=== PATIENT | female | born 1945 | race Caucasian/White ===

== ENCOUNTER → 2019-10-02 12:46 | Outpatient (CLI) | payer MEDICARE, OTHER, SELFPAY ==
--- NOTE | 2019-10-02 | DI.US.S_ITS ---
PROCEDURE: US THYROID INDICATIONS: F/U MULTINODULAR GOITER TECHNIQUE: Real-time scanning was performed of the thyroid gland, with image documentation. COMPARISON: [facility], [place], THYROID, 01/14/2018, 8:37. FINDINGS: Right: Thyroid lobe measures 5.9 x 2.9 x 2.6 cm, and is homogeneous in echotexture. Left: Thyroid lobe measures 6.4 x 3.1 x 2.8 cm, and is homogenous in echotexture. Isthmus: 9 mm thick. Nodule number: #1 Location: Medial aspect of lower pole right thyroid lobe Size: 1.2 x 1 x 1.3 cm. previously measures 1.2 x 1 x 1.4 cm in size Composition: spongiform Echogenicity: Hypoechoic Shape: Wider than tall Margins: Smooth Echogenic foci: None Total points: 2 ACR TI-RADS category: Not suspicious Nodule number: #2 Location: Lower pole of right thyroid lobe Size: 1.4 x 0.9 x 1 cm compared to 1.2 x 0.8 x 1 cm on previous study. Composition: Predominantly cystic Echogenicity: Hypoechoic Shape: Wider than tall Margins: Smooth Echogenic foci: None Total points: 2 ACR TI-RADS category: Not suspicious Nodule number: #3 Location: Upper pole of left thyroid lobe Size: 1.5 x 1.1 x 1.6 cm. previously measures 1.3 x 1 x 1.4 cm in size Composition: Spongiform Echogenicity: Hypoechoic Shape: Wider than tall Margins: Smooth Echogenic foci: None Total points: 2 ACR TI-RADS category: Not suspicious Nodule number: #4 Location: Lower pole of left thyroid lobe Size: 1.8 x 1.2 x 1.6 cm. previously measures 1.5 x 1.1 x 1.4 cm in size Composition: Solid Echogenicity: Hypoechoic Shape: Wider than tall Margins: Smooth Echogenic foci: Punctate Total points: 7 ACR TI-RADS category: Highly suspicious IMPRESSION: Interval increase in size of patient's highly suspicious lower pole left thyroid lobe nodule, consider FNA of this nodule for further evaluation. ACR TI-RADS definitions and recommendations: TI-RADS 1 (benign): 0 points. FNA not needed. TI-RADS 2 (not suspicious): 2 points. FNA not needed. TI-RADS 3 (mildly suspicious): 3 points. * FNA if 2.5 cm or larger, follow up if 1.5 cm or larger (at 1, 3, and 5 years). TI-RADS 4 (moderately suspicious): 4-6 points. * FNA if 1.5 cm or larger, follow up if 1 cm or larger (at 1, 2, 3, and 5 years). TI-RADS 5 (highly suspicious): 7 points or more. * FNA if 1 cm or larger, follow up if 0.5 cm or larger (every year for 5 years). Dictated by: Gee Ochoa M.D. on 10/02/2019 at 15:26 Approved by: Gee Ochoa M.D. on 10/02/2019 at 15:31
== END ==
PROVIDERS: Family Provider Physician Assistant; PCP Physician Assistant; Visit Provider Internal Medicine Endocrinology, Diabetes & Metabolism
DX: E04.2 Nontoxic multinodular goiter (principal)
CPT/HCPCS: 76536

== ENCOUNTER → 2020-03-28 13:12 | Outpatient (CLI) | payer MEDICARE, OTHER, SELFPAY ==
--- NOTE | 2020-03-28 | DI.MRI.S_ITS ---
PROCEDURE: MR LUMBAR SPINE WO CON INDICATIONS: Low back pain TECHNIQUE: Noncontrast sagittal T1 spin echo and T2 fast echo, sagittal STIR, axial T1 and T2 fast spin echo through the lumbar spine. In cases with scoliosis, additional coronal T2 fast spin echo may be performed. COMPARISON: [facility], CR, XR LUMBAR SPINE WITH OLBIQUES PLUS FLEXION EXTENSION, 03/21/2020, 13:54. FINDINGS: Image quality: Excellent. Alignment and Curvature: There are 5 lumbar-type vertebral bodies by plain film. There is mild grade 1 anterolisthesis of L1 on L2. Mild grade 1 retrolisthesis of L2 on L3, L3 on L4, and L4 on L5. Bone Marrow: Marrow is of normal overall signal. No acute vertebral body compression fractures. There is mild reactive signal within the endplates adjacent to the T10-T11, T11-T12, T12-L1, L1-L2, L3-L4, and L4-L5 intervertebral discs. Spinal Cord: Conus medullaris terminates at the upper L2 level. Visualized cord demonstrates normal signal and size. Paraspinous Soft Tissues: No paravertebral masses. L1-L2: Moderate disc height loss and desiccation. Mild diffuse disc bulge. Mild facet and ligamentum flavum hypertrophy. Mild canal stenosis. Mild bilateral foraminal stenosis. L2-L3: Mild disc height loss and desiccation. Mild diffuse disc bulge. Mild facet and ligamentum flavum hypertrophy. Mild epidural lipomatosis. Mild canal stenosis. Mild bilateral foraminal stenosis. L3-L4: Moderate disc desiccation. Moderate diffuse disc bulge with superimposed small right posterolateral broad based protrusion. Mild facet and ligament flavum hypertrophy. Mild epidural lipomatosis. Moderate canal stenosis. Moderate right and mild left foraminal stenosis. L4-L5: Mild disc height loss. Moderate disc desiccation. Moderate diffuse disc bulge. Moderate facet and ligamentum flavum hypertrophy. Mild epidural lipomatosis. Moderate canal stenosis. Mild right and moderate left subarticular foraminal stenosis. L5-S1: Mild disc height loss and desiccation. Mild diffuse disc bulge. Mild facet and ligamentum hypertrophy. Mild canal stenosis. Moderate subarticular foraminal stenosis bilaterally. IMPRESSION: 1. Multilevel degenerative disc and facet disease, as well as ligamentum flavum hypertrophy and epidural lipomatosis. 2. Multilevel canal stenoses, worst at L3-L4 and L4-L5, where there are moderate canal stenoses present. 3. Multilevel foraminal stenoses, worst at L3-L4, L4-L5, and L5-S1, where there are moderate foraminal stenoses as described above. Dictated by: Puneet Christy M.D. on 03/28/2020 at 13:48 Approved by: Puneet Christy M.D. on 03/28/2020 at 14:20
== END ==
PROVIDERS: Family Provider Physician Assistant; PCP Internal Medicine; Referring Provider Physical Medicine & Rehabilitation Pain Medicine; Visit Provider Physical Medicine & Rehabilitation Pain Medicine
DX: M54.5 Low back pain (principal); M48.061 Spinal stenosis, lumbar region without neurogenic claudication; M48.07 Spinal stenosis, lumbosacral region; M51.36 Other intervertebral disc degeneration, lumbar region; E88.2 Lipomatosis, not elsewhere classified
CPT/HCPCS: 72148

== ENCOUNTER → 2020-08-10 09:21 | Outpatient (CLI) | payer MEDICARE, OTHER, SELFPAY ==
[2020-08-10 09:51] LABS: Bacteria Urine None Seen; RBC Urine None Seen (0-5/HPF)
[2020-08-10 10:23] LABS: Add Manual Diff / Slide Review NO; Basophils Absolute Auto 0 /uL (0-100); Basophils Percent Auto 0.4 % (0-2); Eosinophils Absolute Auto 100 /uL (0-450); Eosinophils Percent Auto 1.8 % (2-4); Hematocrit 41.2 % (36-46); Hemoglobin 13.8 g/dL (12.0-16.0); Lymphocytes Absolute Auto 1300 /uL (1100-4500); Mean Corpuscular HGB Conc 33.6 % (30-36); Mean Corpuscular Hemoglobin 30.5 PG (26-34); Mean Corpuscular Volume 90.9 fL (80-100); Monocytes Absolute Auto 400 /uL (0-900); Monocytes Percent Auto 6.6 % (3-14); Neutrophils Absolute Auto 3700 /uL (1500-7000); Neutrophils Percent Auto 68.2 % (50-75); Platelet Count 190 X10^3/uL (150-400); Red Blood Cell Count 4.54 X10^6/uL (4.0-5.2); Red Cell Distribution Width 13.3 % (11.6-14.8); White Blood Cell Count 5.5 X10^3/uL (4.5-11.0)
[2020-08-10 10:43] LABS: Erythrocyte Sedimentation Rate 10 MM/HR (0-20)
[2020-08-10 10:51] LABS: Alanine Aminotransferase 20 IU/L (<35); Albumin 4.3 g/dL (3.5-5.0); Albumin Globulin Ratio 1.6 (1.0-2.8); Alkaline Phosphatase 91 U/L (38-126); Aspartate Aminotransferase 27 IU/L (14-36); Bilirubin Total 0.8 mg/dL (0.2-1.3); Blood Urea Nitrogen 15 mg/dL (7-17); Calcium 9.5 mg/dL (8.4-10.2); Carbon Dioxide 33 mmol/L (22-32); Chloride 102 mmol/L (98-107); Cholesterol 219 mg/dL (140-199); Estimated Glomerular Filt Rate > 60.0 mL/min (>60); Globulin 2.7 g/dL (1.7-4.1); Glucose 98 mg/dL (80-110); HDL Cholesterol 60 mg/dL (40-60); HEMOLYSIS < 15 (0-50); LDL Cholesterol Calculated 146 mg/dL (<100); Potassium 4.4 mmol/L (3.4-5.1); Sodium 137 mmol/L (137-145); Triglycerides 64 mg/dL (35-150)
[2020-08-10 10:54] LABS: C-Reactive Protein Quant < 0.5 mg/dL (<1.0); NT-proBNP (BNP-Adult 18+) 106 pg/mL (<125)
[2020-08-10 11:20] LABS: Ferritin 94 ng/mL (11-264)
[2020-08-10 11:31] LABS: HEMOLYSIS < 15 (0-50); Iron 133 ug/dL (37-170)
[2020-08-10 11:42] LABS: Percent Iron Saturation 41 % (15-50); Total Iron Binding Capacity 323 ug/dL (265-497); Transferrin 256 mg/dL (206-381)
[2020-08-10 11:48] LABS: Vitamin D 25 Hydroxy (D3) 52.8 ng/mL (30.0-100.0)
[2020-08-10 12:04] LABS: TSH w/ Reflex to FT4 1.25 uIU/mL (0.47-4.68)
[2020-08-10 12:29] LABS: Appearance Urine UA CLEAR; Bilirubin Urine UA NEGATIVE (NEGATIVE); Color Urine UA YELLOW; Glucose Urine UA NEGATIVE (Negative); Ketones Urine UA NEGATIVE (NEGATIVE); Leukocyte Esterase Urine UA 2+ (NEGATIVE); Nitrite Urine UA NEGATIVE (Negative); Occult Blood Urine UA NEGATIVE (Negative); Protein Urine UA NEGATIVE (Negative); Specific Gravity Urine UA 1.015 (1.000-1.035); Urobilinogen Urine UA 0.2 E.U./dL (0.2)
[2020-08-10 12:34] LABS: pH Urine UA 7.5 (4.5-8.0)
[2020-08-10 12:37] LABS: Culture Indicated Urine Specimen Cultured; Squamous Epithelial Cell Urine 0-1 /HPF (0-5/HPF); WBC Urine 1-5/HPF (0-5/HPF)
[2020-08-12 15:38] LABS: QuantiFERON Mitogen Value 6.24 IU/mL (.); QuantiFERON Nil Value 0.11 IU/mL (.); QuantiFERON TB Gold Plus Negative (Negative); QuantiFERON TB1 Ag Value 0.11 IU/mL (.)
== END ==
PROVIDERS: Family Provider Physician Assistant; PCP Internal Medicine; Referring Provider Internal Medicine; Visit Provider Internal Medicine
DX: R79.89 Other specified abnormal findings of blood chemistry (principal); R53.83 Other fatigue; R03.0 Elevated blood-pressure reading, without diagnosis of hypertension; E78.5 Hyperlipidemia, unspecified; E04.2 Nontoxic multinodular goiter; M54.42 Lumbago with sciatica, left side; I50.9 Heart failure, unspecified; D51.9 Vitamin B12 deficiency anemia, unspecified
CPT/HCPCS: 36415; 80053; 80061; 81001; 82306; 82728; 83540; 83550; 83880; 84443; 85025; 85651; 86140; 86480; 87086

== ENCOUNTER → 2020-08-25 09:28 | Outpatient (CLI) | payer MEDICARE, OTHER, SELFPAY | PROVIDERS: Family Provider Physician Assistant; PCP Internal Medicine; Referring Provider Internal Medicine; Visit Provider Internal Medicine | DX: Z13.820 Encounter for screening for osteoporosis (principal); M85.852 Other specified disorders of bone density and structure, left thigh; Z78.0 Asymptomatic menopausal state; E07.9 Disorder of thyroid, unspecified; Z82.62 Family history of osteoporosis | CPT/HCPCS: 77080 ==

== ENCOUNTER → 2020-10-21 07:41 | Outpatient (CLI) | payer MEDICARE, OTHER, SELFPAY ==
[2020-10-21] MEDS: COVID-19 VACC #1, MRNA(MOD) 100 MCG/0.5 ML VIAL IM (07:44)
== END ==
PROVIDERS: Family Provider Physician Assistant; PCP Internal Medicine; Visit Provider Internal Medicine
DX: Z23 Encounter for immunization (principal)
CPT/HCPCS: 0011A; 91301

== ENCOUNTER → 2020-11-07 11:40 | Outpatient (CLI) | payer MEDICARE, OTHER, SELFPAY ==
--- NOTE | 2020-11-07 11:41 | DI.RAD.S_ITS ---
PROCEDURE: XR RIBS BI MIN 4V W CXR1V INDICATIONS: Fall with chest/shoulder discomfort TECHNIQUE: For views of the bilateral ribs were acquired, along with a single view chest. COMPARISON: None. FINDINGS: Surgical changes and devices: None. Bones and chest wall: No fractures or dislocations. No suspicious bony lesions. Overlying soft tissues appear unremarkable. Lungs and pleura: No pleural effusions or pneumothorax. Lungs appear clear. Mediastinum: Mediastinal contours appear normal. Heart size is normal. IMPRESSION: No trauma found, no pneumothorax suspected. Dictated by: Caleb Naidu M.D. on 11/07/2020 at 12:52 Approved by: Caleb Naidu M.D. on 11/07/2020 at 12:53
--- NOTE | 2020-11-07 11:41 | DI.RAD.S_ITS ---
PROCEDURE: XR SHOULDER RT MIN 2V INDICATIONS: Fall with chest/shoulder discomfort TECHNIQUE: 3 views of the shoulder were acquired. COMPARISON: None. FINDINGS: Bones: No fractures or dislocations. No suspicious bony lesions. Visualized ribs appear intact. Soft tissues: No suspicious soft tissue calcifications. IMPRESSION: No acute trauma found. [id number] osteoarthritis at the AC joint. Dictated by: Caleb Naidu M.D. on 11/07/2020 at 12:53 Approved by: Caleb Naidu M.D. on 11/07/2020 at 12:54
== END ==
PROVIDERS: Family Provider Physician Assistant; PCP Family Medicine; Referring Provider Family Medicine; Visit Provider Family Medicine
DX: M25.511 Pain in right shoulder (principal); M19.011 Primary osteoarthritis, right shoulder; R07.81 Pleurodynia; M47.816 Spondylosis without myelopathy or radiculopathy, lumbar region; M51.26 Other intervertebral disc displacement, lumbar region
CPT/HCPCS: 71111; 73030

== ENCOUNTER → 2020-11-18 07:54 | Outpatient (CLI) | payer MEDICARE, OTHER, SELFPAY ==
[2020-11-18] MEDS: COVID-19 VACC #2, MRNA(MOD) 100 MCG/0.5 ML VIAL IM (08:01)
== END ==
PROVIDERS: PCP Family Medicine; Visit Provider Internal Medicine
DX: Z23 Encounter for immunization (principal)
CPT/HCPCS: 0012A; 91301

== ENCOUNTER → 2021-05-12 12:05 | Outpatient (CLI) | payer MEDICARE, OTHER, SELFPAY ==
--- NOTE | 2021-05-12 12:07 | DI.RAD.S_ITS ---
PROCEDURE: XR HIP W PEL IF DONE BLADIMIR MIN 4V INDICATIONS: Osteoarthritis of hip, unspecified TECHNIQUE: AP pelvis with lateral view(s) of both hip(s). COMPARISON: None. FINDINGS: Bones: No fractures or dislocations. Pelvic ring appears intact. No suspicious bony lesions. Moderate bilateral symmetric hip joint and sacroiliac joint osteoarthritis. Soft tissues: The visualized bowel gas pattern is normal. No suspicious soft tissue calcifications. IMPRESSION: Moderate osteoarthritis of the hips and sacroiliac joints bilaterally. Dictated by: Shaye Eugene M.D. on 05/12/2021 at 12:28 Approved by: Shaye Eugene M.D. on 05/12/2021 at 12:29
== END ==
PROVIDERS: PCP Family Medicine; Referring Provider Physical Medicine & Rehabilitation; Visit Provider Physical Medicine & Rehabilitation
DX: M16.0 Bilateral primary osteoarthritis of hip (principal); M46.1 Sacroiliitis, not elsewhere classified; M51.26 Other intervertebral disc displacement, lumbar region; M47.816 Spondylosis without myelopathy or radiculopathy, lumbar region; M19.011 Primary osteoarthritis, right shoulder
CPT/HCPCS: 73522; 99214

== ENCOUNTER → 2021-05-22 08:28 | Outpatient (CLI) | payer MEDICARE, OTHER, SELFPAY ==
[2021-05-22 13:01] LABS: COVID19 -Nasal RAPID Negative (Negative)
== END ==
PROVIDERS: PCP Family Medicine; Referring Provider Physical Medicine & Rehabilitation; Visit Provider Physical Medicine & Rehabilitation
DX: Z20.822 Contact with and (suspected) exposure to COVID-19 (principal)
CPT/HCPCS: 87635; C9803

== ENCOUNTER 2021-05-23 12:24 | Outpatient (CLI) | payer MEDICARE, OTHER, SELFPAY ==
[2021-05-23] VITALS (8 sets, daily range): BP systolic 166–193; BP diastolic 77–88; PULSE 59–75; RESP 17–21; TEMP 36.9; O2SAT 94–96
--- NOTE | 2021-05-23 12:26 | DI.RAD.S_ITS ---
PROCEDURE: PAIN L/S TRANSFORAMINAL INJECT INDICATIONS: SPONDYLOSIS [facility], , LUMBAR TRANSFORAMINAL JEROMY, 07/26/2020, 9:12. FINDINGS: Fluoroscopic spot filming was performed to verify placement of a spinal needle at the L3-L4 level, as labeled on the films. Appropriate location of the needle tip was confirmed by injection of iodinated contrast. IMPRESSION: Intraprocedural examination within normal limits. Dictated by: Shukri Moore M.D. on 05/23/2021 at 13:44 Approved by: Shukri Moore M.D. on 05/23/2021 at 13:45
[2021-05-23] MEDS: MIDAZOLAM 5 MG/5 ML VIAL IV (13:32)
[2021-05-23] MEDS: BETAMETHASONE 30 MG/5 ML MDV 6 MG INJ (13:34)
[2021-05-23] MEDS: IOPAMIDOL 15 ML VIAL 3 ML INJ (13:34)
[2021-05-23] MEDS: DEXAMETHASONE 10 MG/ML VIAL 20 MG INJ (13:35)
[2021-05-23] MEDS: BUPIVACAINE 0.25% (PF) VIAL 2 ML INJ (13:35)
--- NOTE | 2021-05-23 13:45 | PM.PROC.IR.1 ---
Date/Time/Diagnoses Date of procedure: 05/23/21 Time of procedure: 13:46 Pre-procedure diagnosis: 1. FORAMINAL STENOSIS WITH LE SYMPTOMS Post-procedure diagnosis: same Procedure Notes Procedure: 1. FLUOROSCOPICALLY GUIDED CONTRAST CONTROLLED TRANSFORAMINAL EPIDURAL STEROID INJECTION - LEFT L3/4 TFESI Indications: Maren is referred by Dr. Spears for treatment of Foraminal Stenosis with left LE Symptoms Physician: Conrado Allen Total Fluoroscopy time (seconds): 9 Total sedation minutes: 10 Complications: none Procedure in detail & Post-procedure care: FINDINGS Foraminal Nerve Root Compression secondary to disc disease and facet hypertrophy DESCRIPTION OF PROCEDURE Following review of allergy and review of potential side effects and complications, including, but not necessarily limited to, infection, allergic reaction, local tissue breakdown, stroke, temporary or permanent nerve injury, paralysis, and possible , the patient indicated that the patient understood and agreed to proceed. An informed consent document was signed by the patient, witnessed by a nurse, and placed in the patient's chart. Additionally, other treatment options including medications, modalities, and physical therapy were reviewed with the patient. After review of previous anaesthesic history and IV conscious sedation the patient was deemed safe to proceed with today?s procedure with IV conscious sedation as ASA class II designation. Safety time-out was performed to confirm patient ID, procedure to be performed and site of procedure. IV sedation was accomplished with a combination of 2mg of Versed was administered by the RN after DO order, titrated to patient comfort during the course of the procedure while the patient remained responsive to all verbal commands In the prone position following sterile prep and drape of the lumbar region, the left L3/4 posterior neuroforamen was identified fluoroscopically. The skin was anesthetized via a 25-gauge 1.5-inch needle with 1% lidocaine solution. At this point, a 25-gauge 3.5-inch spinal needle was atraumatically introduced and advanced under fluoroscopic guidance through the posterior left L3/4 neuroforamen to approximately the anterior aspect of the canal. Depth was confirmed on lateral view. Following negative aspiration, injection of approximately 1.5 cc of Isovue 200 under live fluoroscopy in the AP view confirmed excellent flow along the nerve root, into the epidural space without vascular or intrathecal uptake observed Radiological data, including multiple fluoroscopic views of the lumbosacral spine, reveal a spinal needle at the left L3/4 posterior neuroforamen. Subsequent views show flow of contrast material flowing superiorly and inferiorly along the nerve root confirming epidural flow. Subsequently, a test dose of 1.5cc of 1% lidocaine solution was administered and patient was observed for two minutes for signs or symptoms of complications, including abdominal pain, shortness of breath, bilateral upper or lower extremity weakness, nausea and vomiting, prior to steroid injection. At this point, a total of 3cc or 20mg of dexamethasone and 6mg betamethasone was injected without incident. The patient tolerated the procedure well without signs or symptoms of complications prior to transfer to the recovery area continued monitoring without incident. The patient was then transferred to the recovery area where they were observed for an appropriate time after the injection. The patient reported a VAS score of 7 prior to the procedure and a post-procedure VAS of 0. POST OP INSTRUCTIONS The patient was provided a Pain Log to continue to record their response to the target-specific procedure prior to follow-up visit with their referring physician. Additionally, specific post-injection care instructions and a contact number to our office were provided if concerns arise regarding possible complications associated with the procedure are suspected.
== END 2021-05-23 14:12 | disposition home or self-care (01) ==
LOC: RAD 12:25
PROVIDERS: PCP Family Medicine; Referring Provider Physical Medicine & Rehabilitation; Visit Provider Physical Medicine & Rehabilitation
DX: M48.061 Spinal stenosis, lumbar region without neurogenic claudication (principal); M51.16 Intervertebral disc disorders with radiculopathy, lumbar region
CPT/HCPCS: 64483; 99152; J0702; J1100; J2250; J3010

== ENCOUNTER → 2021-08-04 10:32 | Outpatient (CLI) | payer MEDICARE, OTHER, SELFPAY ==
[2021-08-04] MEDS: COVID-19 VACC #3, MRNA(MOD) 50 MCG/0.25 ML VIAL IM (10:37)
== END ==
PROVIDERS: PCP Family Medicine; Visit Provider Internal Medicine
DX: Z23 Encounter for immunization (principal)
CPT/HCPCS: 0013A; 91301

== ENCOUNTER 2021-09-14 18:19 | Emergency (ER) | payer MEDICARE, OTHER, SELFPAY ==
[2021-09-14 18:23] VITALS: BP 213/95; PULSE 77; RESP 14; TEMP 36.7; O2SAT 97; BMI 29.7
--- NOTE | 2021-09-14 18:49 | ED.HA ---
HPI - Headache General Chief Complaint: Headache Stated Complaint: had a few migraines, has an upcoming surgery Time Seen by Provider: 09/14/21 18:43 Source: patient Mode of arrival: Ambulatory History of Present Illness HPI Narrative: Patient is a 76-year-old female who is here for evaluation of a headache. She states that the headache started yesterday. Was a gradual onset. No fevers. No trauma. This morning she woke up and had no symptoms but a another headache very similar to the 1 yesterday developed again today. She does have a history of migraines. She is not currently on any medications. States she has not had a migraine in approximately 30 years. She has been on estrogen replacement for the past 7 weeks. She is scheduled to have a hysterectomy at the beginning and next month. Patient states that in character this feels like 1 of her many years ago. Describes it as the right side of her head. Related Data Home Medications Medication Instructions Recorded Confirmed acetaminophen 325 mg capsule 650 mg PO Q6H PRN 08/10/20 09/07/21 (Tylenol) codeine sulfate 15 mg tablet 15 mg PO Q4-6H PRN 08/10/20 09/07/21 diclofenac sodium 1 % topical gel 2 g TOPICAL ONCE g 08/10/20 09/07/21 losartan 25 mg tablet 25 mg PO DAILY 11/07/20 09/07/21 Previous Rx's Medication Instructions Recorded Penciclovir (DENAVIR) 1 % TOPICAL SEE INSTRUCTIONS #1.5 06/01/16 gm cyclobenzaprine 5 mg tablet 5 mg PO TID PRN #14 tab 11/07/20 tramadol 50 mg tablet 50 mg PO Q8H PRN #30 tab 05/18/21 estradiol (Estrace) 0.5 g VAGINAL DAILY #42.5 g 07/27/21 Allergies Allergy/AdvReac Type Severity Reaction Status Date / Time amoxicillin [AMOXICILLIN] Allergy Severe Ulcers in Verified 09/14/21 18:27 mouth - severe drug rash - skin peeled ampicillin [AMPICILLIN] Allergy Severe Severe Verified 09/14/21 18:27 drug rash, ulcers in mouth, peeling of skin Sulfa (Sulfonamide Allergy Mild HIVES Verified 09/14/21 18:27 Antibiotics) [SULFA (SULFONAMIDE ANTIBIOTICS)] metronidazole [METRONIDAZOLE] AdvReac Severe Herrera Verified 09/14/21 18:27 Wilder syndrome oxycodone [OXYCODONE] AdvReac Severe Orthopnea Verified 09/14/21 18:27 - woke up gasping for air ciprofloxacin [From CIPRO] AdvReac Intermediate Torn Verified 09/14/21 18:27 meniscus PENICILLIN Allergy Severe Urticaria Uncoded 09/07/21 14:46 swelling Review of Systems Constitutional Constitutional: Denies fever(s) and Reports headache(s) Eyes Eyes: Reports system reviewed and no additional complaints, except as documented and Denies change in vision ENT Ears, Nose, Mouth, and Throat: Reports system reviewed and no additional complaints, except as documented, Denies vertigo, Denies dizziness, Reports headache(s), Denies neck pain, Denies disequilibrium, Denies sinus pressure and Denies sore throat Cardiovascular Cardiovascular: Reports system reviewed and no additional complaints, except as documented, Denies chest pain and Denies dyspnea Respiratory Respiratory: Reports system reviewed and no additional complaints, except as documented and Denies dyspnea Gastrointestinal Gastrointestinal: Reports system reviewed and no additional complaints, except as documented Genitourinary Genitourinary: Reports system reviewed and no additional complaints, except as documented Musculoskeletal Musculoskeletal: Reports system reviewed and no additional complaints, except as documented, Denies back pain, Denies neck pain and Denies tingling Integumentary/Breasts Skin/Breast: Reports system reviewed and no additional complaints, except as documented Neurologic Neurologic: Denies abnormal movements, Denies confusion, Denies vertigo, Denies dizziness, Reports headache(s), Denies tingling, Denies tremor(s) and Denies disequilibrium Psychiatric Psychiatric: Denies confusion Hematologic/Lymphatic On Anticoagulants: No Patient History Medical History 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 Facet arthropathy, lumbar Hereditary hemochromatosis Herniated nucleus pulposus, L3-4 left History of Herrera-Wilder toxic epidermal necrolysis overlap syndrome Hyperlipidemia Hypertension Hypothyroidism Insomnia Osteopenia (06/14/14) Primary osteoarthritis, right shoulder Surgical History History of carpal tunnel repair Family History Sister Heart disease Thyroid disorder RA (rheumatoid arthritis) Social History Smoking Status: Never smoker second hand exposure: No alcohol intake: current substance use type: does not use Smoking Status: Never smoker alcohol intake frequency: holidays/special occasions only Substance Use Type: does not use Exam Initial Vital Signs Initial Vital Signs: Vital Signs Temperature 98.0 F 09/14/21 18:23 Pulse Rate 77 09/14/21 18:23 Respiratory Rate 14 09/14/21 18:23 Blood Pressure 213/95 H 09/14/21 18:23 Pulse Oximetry 97 09/14/21 18:23 Const General: cooperative, healthy appearing, comfortable, well developed and well groomed Limitations: mental status not altered HENMT Head: normal to inspection and normocephalic Ears: hearing grossly normal bilaterally Nose: external nose normal Face and sinus: normal facial exam Eyes General: appearance normal, both eyes and all related structures Pupils: PERRL Resp Effort & Inspection: normal respiratory effort Auscultation: clear to auscultation bilaterally Cardio Rate: regular rate Rhythm: regular rhythm GI Palpation: soft and No tender Skin General: no rashes or lesions noted Neuro General: patient alert, patient awake, patient oriented x3 and moves all extremities Cranial Nerves: CN's II-XI intact bilaterally Cognition: normal cognition Speech: speech normal Motor: muscle tone normal throughout Sensory Exam: no sensory deficits noted Extrem General: normal to inspection and capillary refill normal Psych Appearance: grossly normal and well kempt Scores GCS [place] coma scale eye opening: Spontaneous [place] coma scale verbal response: Orientated [place] coma scale motor response: Obey commands [place] coma scale total score: 15 Course Orders Ordered: ED Orders 09/14/21 18:50 Basic Metabolic Panel Stat C-Reactive Protein Quant Stat Complete Blood Count AUTO DIFF Stat Erythrocyte Sedimentation Rate Stat 09/14/21 18:51 CT head/brain wo con Stat Vital Signs Vital signs: Vital Signs - 8 hr 09/14/21 18:23 09/14/21 19:59 Temperature 98.0 F Pulse Rate 77 Respiratory Rate 14 Blood Pressure 213/95 H 189/87 H Pulse Oximetry 97 97 MDM - Headache Lab Data Attestation: I reviewed the patient's lab results. Result diagrams: 09/14/21 18:50 09/14/21 18:50 Labs: Lab Results 09/14/21 09/14/21 Range/Units 18:50 18:50 WBC 5.5 (4.5-11.0) X10^3/uL RBC 4.27 (4.0-5.2) X10^6/uL Hgb 13.0 (12.0-16.0) g/dL Hct 38.2 (36-46) % MCV 89.5 (80-100) fL MCH 30.6 (26-34) PG MCHC 34.2 (30-36) % RDW 12.9 (11.6-14.8) % Plt Count 196 (150-400) X10^3/uL Neut % (Auto) 57.7 (50-75) % Lymph % (Auto) 31.0 (25-40) % [place] % (Auto) 7.4 (3-14) % Eos % (Auto) 3.5 (2-4) % Baso % (Auto) 0.4 (0-2) % Neut # (Auto) 3200 (6655-5837) /uL Lymph # (Auto) 1700 (4946-8570) /uL [place] # (Auto) 400 (0-900) /uL Eos # (Auto) 200 (0-450) /uL Baso # (Auto) 0 (0-100) /uL ESR 10 (0-20) MM/HR Sodium 137 (137-145) mmol/L Potassium 3.9 (3.4-5.1) mmol/L Chloride 103 (98-107) mmol/L Carbon Dioxide 28 (22-32) mmol/L BUN 15 (7-17) mg/dL Creatinine 0.52 (0.52-1.04) mg/dL Estimated GFR > 60.0 (>60) mL/min BUN/Creatinine Ratio 28.8 H (6-22) Glucose 177 H (80-110) mg/dL Calcium 9.6 (8.4-10.2) mg/dL C-Reactive Protein 1.1 H (<1.0) mg/dL Imaging Data CT scan - head: Radiologist's Impression: Launch?[address] [address] [address] Scan Report Signed Patient: Maren Zimmer MR#: [id number] : 1945 Acct:[id number] Age/Sex: 76 / F Date of Service: 09/14/21 Loc: ED Accession Number: [id number] ?? Procedure: CT head/brain wo con Ordering Provider: Alvarez Benjamin D.O. PROCEDURE:? CT HEAD/BRAIN WO CON ? INDICATIONS:? HTN and headache ? TECHNIQUE:? Noncontrast 4.5 mm thick angled axial sections acquired from the foramen magnum to the vertex, with coronal and sagittal reformats.? For radiation dose reduction, the following was used:? automated exposure control, adjustment of mA and/or kV according to patient size.? ? COMPARISON:? None. ? FINDINGS:? Image quality:? Excellent.? ? CSF spaces:? Basal cisterns are patent.? No extra-axial fluid collections.? The ventricles are symmetric in size and shape.? ? Brain:? No intracranial bleeds or masses.? There is cerebral volume loss for age, with resultant ventricular and sulcal prominence.? There are periventricular and deep white matter chronic small vessel ischemic changes.? There is intracranial internal carotid artery atherosclerosis.? ? Skull and face:? Calvarium and visualized facial bones appear intact, without suspicious lesions.? ? Sinuses:? Bilateral frontal sinus and anterior ethmoid air cell mucosal thickening leading to varying degrees of near complete opacification and complete opacification.? Remaining paranasal sinuses are predominantly clear.? No mastoid air cell effusion. ? IMPRESSION:? No acute intracranial finding.? Frontal sinus and ethmoid air cell opacification which may represent acute sinusitis.? ? ? Dictated by: Oswaldo Giron M.D. on 09/14/2021 at 19:07 ? ? Approved by: Oswaldo Giron M.D. on 09/14/2021 at 19:09?? [facility] Narrative Medical decision making narrative: Patient has a unremarkable neurologic exam. She denied the need for any medication here in the emergency department. Her head CT is unremarkable. Informed her that we cannot specifically state that the headache has been cause because of her estrogen supplementation that she has been on this medication for the past 7 weeks and has only had a headache yesterday and today. 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 No fevers. We did discuss the possibility that she is again having migraines despite the fact that has been 30 years and she has had a previous 1. She expressed understanding of this. Will just take Tylenol and ibuprofen at home as needed. She was given strict return precautions. She expressed understanding and agreement. Discharge Plan Departure Patient Disposition: Home Clinical Impression: Headache, Hypertension Instructions: DI for Headache Activity Restrictions/Additional Instructions: I recommend that you take all of your medications as directed. Take your blood pressure at home like we discussed. Contact your primary doctor for a follow-up. Return to the emergency department for any new or worsening symptoms Prescriptions: No Action Penciclovir (DENAVIR) 1 % Topical SEE INSTRUCTIONS Qty: 1.5 0RF tramadol 50 mg tablet 50 mg PO Q8H PRN (Reason: pain) Qty: 30 0RF estradiol [Estrace] 0.01 % (0.1 mg/gram) cream 0.5 g vaginal DAILY Qty: 42.5 3RF Rx Instructions: 0.5gm in vagina and small amt to opening of vagina every day for 2 wks and then twice a week losartan 25 mg tablet 25 mg PO DAILY 0RF cyclobenzaprine 5 mg tablet 5 mg PO TID PRN (Reason: muscle spasm) Qty: 14 0RF acetaminophen [Tylenol] 325 mg capsule 650 mg PO Q6H PRN0RF codeine sulfate 15 mg tablet 15 mg PO Q4-6H PRN0RF diclofenac sodium 1 % gel 2 g topical ONCE 0RF Referrals: Kristopher Spears MD [Primary Care Provider] -
--- NOTE | 2021-09-14 18:51 | DI.CT.S_ITS ---
PROCEDURE: CT HEAD/BRAIN WO CON INDICATIONS: HTN and headache TECHNIQUE: Noncontrast 4.5 mm thick angled axial sections acquired from the foramen magnum to the vertex, with coronal and sagittal reformats. For radiation dose reduction, the following was used: automated exposure control, adjustment of mA and/or kV according to patient size. COMPARISON: None. FINDINGS: Image quality: Excellent. CSF spaces: Basal cisterns are patent. No extra-axial fluid collections. The ventricles are symmetric in size and shape. Brain: No intracranial bleeds or masses. There is cerebral volume loss for age, with resultant ventricular and sulcal prominence. There are periventricular and deep white matter chronic small vessel ischemic changes. There is intracranial internal carotid artery atherosclerosis. Skull and face: Calvarium and visualized facial bones appear intact, without suspicious lesions. Sinuses: Bilateral frontal sinus and anterior ethmoid air cell mucosal thickening leading to varying degrees of near complete opacification and complete opacification. Remaining paranasal sinuses are predominantly clear. No mastoid air cell effusion. IMPRESSION: No acute intracranial finding. Frontal sinus and ethmoid air cell opacification which may represent acute sinusitis. Dictated by: Oswaldo Giron M.D. on 09/14/2021 at 19:07 Approved by: Oswaldo Giron M.D. on 09/14/2021 at 19:09
[2021-09-14 19:06] LABS: Add Manual Diff / Slide Review NO; Basophils Absolute Auto 0 /uL (0-100); Basophils Percent Auto 0.4 % (0-2); Eosinophils Absolute Auto 200 /uL (0-450); Eosinophils Percent Auto 3.5 % (2-4); Hematocrit 38.2 % (36-46); Lymphocytes Absolute Auto 1700 /uL (1100-4500); Mean Corpuscular HGB Conc 34.2 % (30-36); Mean Corpuscular Hemoglobin 30.6 PG (26-34); Mean Corpuscular Volume 89.5 fL (80-100); Monocytes Absolute Auto 400 /uL (0-900); Monocytes Percent Auto 7.4 % (3-14); Neutrophils Absolute Auto 3200 /uL (1500-7000); Neutrophils Percent Auto 57.7 % (50-75); Platelet Count 196 X10^3/uL (150-400); Red Blood Cell Count 4.27 X10^6/uL (4.0-5.2); Red Cell Distribution Width 12.9 % (11.6-14.8); White Blood Cell Count 5.5 X10^3/uL (4.5-11.0)
[2021-09-14 19:29] LABS: BUN Creatinine Ratio 28.8 (6-22); Blood Urea Nitrogen 15 mg/dL (7-17); Calcium 9.6 mg/dL (8.4-10.2); Carbon Dioxide 28 mmol/L (22-32); Chloride 103 mmol/L (98-107); Estimated Glomerular Filt Rate > 60.0 mL/min (>60); Glucose 177 mg/dL (80-110); HEMOLYSIS < 15 (0-50); Potassium 3.9 mmol/L (3.4-5.1); Sodium 137 mmol/L (137-145)
[2021-09-14 19:34] LABS: Erythrocyte Sedimentation Rate 10 MM/HR (0-20)
[2021-09-14 19:52] LABS: C-Reactive Protein Quant 1.1 mg/dL (<1.0)
[2021-09-14 19:59] VITALS: BP 189/87; O2SAT 97
== END 2021-09-14 20:19 | disposition home or self-care (01) ==
PROVIDERS: Emergency Provider Emergency Medicine; PCP Family Medicine
DX: R51.9 Headache, unspecified (principal); I10 Essential (primary) hypertension
CPT/HCPCS: 36415; 70450; 80048; 85025; 85651; 86140; 99283; 99284

== ENCOUNTER → 2021-10-09 10:34 | Outpatient (CLI) | payer MEDICARE, OTHER, SELFPAY | PROVIDERS: PCP Family Medicine; Referring Provider Obstetrics & Gynecology; Visit Provider Obstetrics & Gynecology | DX: Z01.812 Encounter for preprocedural laboratory examination (principal); Z20.822 Contact with and (suspected) exposure to COVID-19 | CPT/HCPCS: 87635 ==

== ENCOUNTER → 2021-12-27 14:28 | Outpatient (CLI) | payer MEDICARE, OTHER, SELFPAY ==
[2021-12-27 15:24] LABS: COVID19 -Nasal RAPID Negative (Negative)
== END ==
PROVIDERS: PCP Family Medicine; Referring Provider Obstetrics & Gynecology; Visit Provider Obstetrics & Gynecology
DX: Z01.812 Encounter for preprocedural laboratory examination (principal); Z20.822 Contact with and (suspected) exposure to COVID-19
CPT/HCPCS: 87635

== ENCOUNTER 2021-12-28 08:16 | Day surgery (SDC) | payer MEDICARE, OTHER, SELFPAY ==
[2021-12-18 08:37] VITALS: BMI 29.9
[2021-12-28] VITALS (18 sets, daily range): BP systolic 88–147; BP diastolic 50–91; PULSE 56–80; RESP 12–17; TEMP 36.1–37; O2SAT 92–99; BMI 29.9
--- NOTE | 2021-12-28 | PATH_ITS ---
[facility] Accession Number: [id number] . 01 Material submitted: . uterus - UTERUS, CERVIX, BILATERAL FALLOPTIAN TUBES . 02 Diagnosis: Uterus, Cervix, Bilateral Fallopian Tubes, Hysterectomy, Bilateral Salpingectomy: 1. Negative for atypia, atypical hyperplasia and malignancy. 2. Leiomyomas. 3. Inactive endometrium. 4. Benign bilateral fallopian tubes. [facility] 01/03/2022 1157 Local . 02 Electronically signed: . Cristina Perez MD, Pathologist NPI- [id number] . 01 Gross description: . The specimen is received in formalin, designated as uterus, cervix, bilateral fallopian tubes, is a uterus (54 grams, 8.5 cm from fundus to cervix, 4.5 cm from cornu to cornu, 2.8 cm from anterior to posterior), right fimbriated fallopian tube (5.2 x 0.4 cm), and left fimbriated fallopian tube (5.0 x 0.5 cm). The apparent cervical margin is markedly ragged. The serosal surfaces of the uterus are grossly unremarkable. The endometrial cavity (2.5 cm in length x 0.9 cm in width) is lined by hemorrhagic endometrium. Sectioning the uterus corpus reveals unremarkable endometrium (0.1 cm average thickness) and multiple white-martinez leiomyomata (0.4 - 0.5 cm in greatest dimension) involving the otherwise grossly unremarkable myometrium (1.5 cm average thickness). . The ectocervical mucosa is pale martinez and smooth with no obvious lesions. The external os is 0.5 cm in diameter, slit-like and patent. The fallopian tubes are bilaterally grossly unremarkable. Shot Polisher And Inspector sections are submitted as follows: . A1: Anterior cervix, 12 o'clock. A2: Anterior endomyometrium, to include rep of largest leiomyoma. A3: Posterior cervix, 6 o'clock. A4: Posterior endomyometrium. A5: Reps of right fallopian tube. A6: Reps of left fallopian tube. ([id number]) /[facility] 01/02/2022 1720 Local . 02 Pathologist provided ICD-10: N85.4 . 02 CPT . 910444 Specimen Comment: A courtesy copy of this report has been sent to [phone], [phone] Specimen Comment: [id number] Performed at: 01 [facility] [address] [facility], [place], [place] [id number] MD Shahriar Birmingham MD Phone: [phone] Performed at: 02 [facility] [address] [place] [id number] MD Cristina Perez MD Phone: [phone]
[2021-12-28] MEDS: LACTATED RINGERS 1,000 ML 100 ML IV ×3 (09:22→15:55)
--- NOTE | 2021-12-28 09:55 | PM.HP.1 ---
History of Present Illness History of Present Illness Date Patient Seen: 12/28/21 Time Patient Seen: 09:55 Chief complaint: OPB Narrative: Patient is a 76-year-old 3 para 3 who presents for an LAVH/bilateral salpingectomy/anterior and posterior repair. This is being done due to uterine prolapse, cystocele, and rectocele. 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 Facet arthropathy, lumbar Hereditary hemochromatosis Herniated nucleus pulposus, L3-4 left History of Herrera-Wilder toxic epidermal necrolysis overlap syndrome Hyperlipidemia Hypertension Hypothyroidism Insomnia Osteoarthritis Osteopenia (06/14/14) Primary osteoarthritis, right shoulder Surgical History History of carpal tunnel repair (~09/2021) Hx of arthroscopy of left knee Hx of colonoscopy Hx of elbow surgery Hx of eye surgery Hx of removal of cyst Family & Social History Family History Sister Heart disease Thyroid disorder RA (rheumatoid arthritis) Social History: household members spouse Prior Living Arrangements House Safety & Behavioral: Feels Safe in Current Yes Environment Been Physically Hurt or No Threatened By a Person Suicidal Ideation Description None Suicide Plan Description No Plan Tobacco & Substance use: Smoking Status Never smoker alcohol intake current alcohol intake frequency 0-2 drinks per day Substance Use Type does not use Meds Home Medications and Allergies Home Medications Medication Instructions Recorded Confirmed Type acetaminophen 325 mg capsule 650 mg PO Q6H PRN 08/10/20 12/18/21 History (Tylenol) codeine sulfate 15 mg tablet 15 mg PO Q4-6H PRN 08/10/20 12/18/21 History diclofenac sodium 1 % topical gel 2 g TOPICAL ONCE PRN g 08/10/20 12/18/21 History cyclobenzaprine 5 mg tablet 5 mg PO TID PRN #14 tab 11/07/20 12/18/21 Rx losartan 25 mg tablet 25 mg PO DAILY 11/07/20 12/28/21 History tramadol 50 mg tablet 50 mg PO Q8H PRN #30 tab 05/18/21 12/18/21 Rx estradiol (Estrace) 0.5 g VAGINAL DAILY #42.5 g 11/04/21 04/07/22 Rx meloxicam 15 mg tablet 15 mg PO DAILY PRN 12/18/21 12/18/21 History Allergies Allergy/AdvReac Type Severity Reaction Status Date / Time amoxicillin [AMOXICILLIN] Allergy Severe Ulcers in Verified 12/28/21 08:14 mouth - severe drug rash - skin peeled ampicillin [AMPICILLIN] Allergy Severe Severe Verified 12/28/21 08:14 drug rash, ulcers in mouth, peeling of skin Sulfa (Sulfonamide Allergy Mild HIVES Verified 12/28/21 08:14 Antibiotics) [SULFA (SULFONAMIDE ANTIBIOTICS)] metronidazole [METRONIDAZOLE] AdvReac Severe Herrera Verified 12/28/21 08:14 Wilder syndrome oxycodone [OXYCODONE] AdvReac Severe Orthopnea Verified 12/28/21 08:14 - woke up gasping for air ciprofloxacin [From CIPRO] AdvReac Intermediate Torn Verified 12/28/21 08:14 meniscus PENICILLIN Allergy Severe Urticaria Uncoded 12/28/21 08:14 swelling Exam Vital Signs (past 8 hours): - 12/28/21 08:54 Temperature 98.5 F Pulse Rate 72 Respiratory Rate 16 Blood Pressure 147/85 H Pulse Oximetry 96 Oxygen Delivery Method Room Air Narrative Exam Narrative: HEENT: No thyromegaly, no anterior cervical or supraclavicular lymphadenopathy. Lungs:Clear to auscultation bilaterally, no wheezes. Cardiovascular: Regular rate and rhythm, no murmurs, rubs, or gallops. Abdomen: No scars. No hepatosplenomegaly. No masses palpable. External genitalia: Normal Vagina: Second-degree uterine prolapse, second-degree cystocele and rectocele Cervix: Prolapse Bimanual exam: 7 Week size prolapsed uterus. Mobile. No adnexal masses or tenderness. Rectal: Second-degree rectocele Assessment & Plan Assessment & Plan narrative: Assessment: 76-year-old 3 para 3 with uterine prolapse, cystocele, and rectocele Plan: LAVH/bilateral salpingectomy/anterior and posterior repair/possible sacral spinous ligament fixation The risks, benefits, and alternatives to the procedure were explained to the patient. The risks including bleeding, infection, injury to the bowel, bladder, or ureters. She understands all of these risks and agrees to proceed. She has opted to retain her ovaries. She understands that there is a possible risk of ovarian cancer down the line. A full par Q was held and consent form was signed. COVID-19 COVID-19 status: Negative Result date/Date tested (Pos, Neg/Pending): 12/27/21 Time Spent With Patient Time with patient: less than 30 minutes Critical Care time: I spent a total of [] minutes of critical care time on this patient's care today; this time is exclusive of procedural time.
--- NOTE | 2021-12-28 09:59 | PM.PREOP ---
Pre-operative Note COVID-19 COVID-19 status: Negative Result date/Date tested (Pos, Neg/Pending): 12/27/21 Criteria for continued procedure: Delay expected to result in less-positive ultimate med/surg outcome and Non-surgical alternatives not available or appropriate per current SOC Interval Note History & Physical reviewed/Exam performed by Physician: Yes Changes to H&P: No H&P completed within 30 days and has changed as indicated here:: 12/28/21
[2021-12-28] MEDS: CLINDAMYCIN 900 MG/50 ML PIGGYBACK 50 MG IV (10:30)
[2021-12-28] MEDS: ACETAMINOPHEN IV 1,000 MG/100 ML VIAL 400 MG IV (11:08)
--- NOTE | 2021-12-28 11:08 | SUR.OPER ---
Lithotomy on padded OR bed. [place] Pad Positioner under torso. Head on pillow, arms padded and tucked at sides. Legs secured in padded yellow fins stirrups.
[2021-12-28] MEDS: BUPIVACAINE 0.5% (PF) 30 ML, EPINEPHrine 0.15 MG INJ (11:21)
[2021-12-28] MEDS: BUPIVACAINE 0.25% (PF) 30 ML, EPINEPHrine 0.15 MG INJ (11:30)
--- NOTE | 2021-12-28 13:10 | P.OP_ITS ---
Operative Date/Time/Diagnoses Date of procedure: 12/28/21 Time of procedure: 13:10 Pre-op diagnosis: Uterine prolapse Cystocele Rectocele Post-op diagnosis: same Procedure & Clinicians Procedure: Procedures Operation Date: 12/28/21 09:45 Actual Procedure Side Surgeon p Laparoscopic Assisted Vag Hysterectomy, bilateral salpingectomy, Maribel Ferrer MD s Anterior/Posterior Repair. Sacrospinous ligament fixation Maribel Ferrer MD Indications: Uterine prolapse Cystocele Rectocele Surgeon: Maribel Ferrer Front Office Medical Assistant: Sarah Aguirre Anesthesia Type: General and Local Operative Notes Findings: 5 wk size prolapsed uterus Normal tubes and ovaries Normal liver and gallbladder 3 degree uterine prolapse 2 degree cystocele 3 degree rectocele Closure Type: primary Specimen(s): left tube, right tube and uterus Applied: catheter (To continuous drainage) and other (Vaginal packing in place) Estimated blood loss (mL): 100 Blood products transfused: none Procedure in detail: The patient was taken to the operating room where she was placed in the dorsal supine position. After adequate general endotracheal anesthesia was achieved, she was placed in the dorsal lithotomy position, and prepped and draped in the usual sterile fashion. A bivalve speculum was placed into the vagina, and a single-tooth tenaculum was placed on the anterior lip of the cervix. The cervical os was sequentially dilated until the ZUMI uterine manipulator could pass easily into the endometrial cavity. The single-tooth tenaculum was removed from the anterior lip of the cervix, and the bivalve speculum was removed from the vagina. Attention was then turned to the abdomen where 6 mL of half percent Marcaine with epinephrine were injected in the umbilical fold. A 5 mm incision was made. The Verees needle was placed into the peritoneal cavity, and its placement confirmed by aspiration and drop test. The abdominal cavity was insufflated with 4 L of CO2. The Verees needle was removed, and a 5 mm trocar was placed without difficulty. Initial inspection of the pelvis revealed the findings noted above. 2 other incisions were made 4 cm lateral to the umbilicus. These were 5 mm incisions. Two 5mm trocars were placed under direct visualization. The right tube was grasped with an atraumatic grasper. The mesosalpinx on the right side was cauterized and cut with plasma kinetic. The round ligament and broad ligament were cauterized and cut. This was continued to the level of the uterine arteries. This was repeated on the patient's left side. The instruments were removed from the abdomen. Attention was then turned to the vagina where the ZUMI uterine manipulator was removed from the uterus. The cervix was grasped with a 4 tooth tenaculum. 10 mL of quarter percent Marcaine with epinephrine were injected circumferentially around the cervix. The cervix was circumscribed. The bladder and rectum were dissected off the lower uterine segment and cervix with an open moistened Ray-Ortega. The peritoneum was entered sharply with the Metzenbaum scissors anteriorly and a Getachew placed. The peritoneum was entered posteriorly with the Metzenbaum scissors and the long weighted speculum was placed into the posterior cul-de-sac. The uterosacral cardinal ligament complexes were clamped, transected, and suture ligated with 0 Vicryl. These were attached to hemostat. The uterine arteries were clamped, transected, and suture ligated with 0 Vicryl. The uterus was handed off for specimen with the tubes and ovaries. The peritoneum was closed with a pursestring suture with 2-0 Vicryl. The vaginal cuff was closed with 0 Vicryl with a series of simple interrupted sutures. The tagged sutures were cut. 2 Allis clamps were placed at the apex of the cystocele. 6 mL of half p ercent Marcaine with epinephrine were injected and an incision was made with a #10 blade between the 2 Allis clamps. Wide Allis clamps were placed on the midline of the cystocele approximately 5. The mucosa was undermined using the Metzenbaum scissors and the mucosa incised in the midline moving the wide Allis clamps to the edges of the mucosa. The mucosa was dissected off the underlying fascia using an open moistened Ray-Ortega and a #10 blade. The fascia was reapproximated with 0 Vicryl with a series of horizontal mattress sutures. The excess vaginal mucosa was excised. The mucosa was closed using simple interrupted sutures with 2-0 Vicryl including the underlying fascia to close the space. The weighted speculum was removed from the vagina. Allis clamps were placed at the mucocutaneous junction at the introitus. 6 mL of quarter percent Marcaine with epinephrine were injected. An incision was made with a #10 blade between the 2 Allis clamps, and a triangular piece of skin and underlying subcutaneous tissue was removed. Allis clamps were placed in the midline of the rectocele. 10 mL of quarter percent Marcaine with epinephrine were injected submucosally. The mucosa was undermined using the Metzenbaum scissors and the mucosa incised in the midline, moving the wide Allis clamps to the mucosal edges. The underlying fascia was dissected off of th mucosa using an open moistened Ray-Ortega and a #10 blade. At this point the area surrounding the right sacral spinous ligament was dissected bluntly to expose the ligament. Using a Capio needle with 2 0 PDS attached, the suture was placed 2 cm from the ischial spine into the sacral spinous ligament. This was then placed through the apex of the rectocele. Fascia was reapproximated using 0 Vicryl with a series of horizontal mattress sutures. The excess vaginal mucosa was excised. The mucosa was closed using a series of simple interrupted sutures with 2-0 Vicryl including the underlying fascia to close the space. Once 3-4 of these sutures were placed, the sacral spinous ligament suture was tied down pulling the vagina posterior. The remainder of the mucosa was closed using 2 0 Vicryl and including the underlying fascia to close the space. On the perineum, 0 Vicryl was used to reapproximate the levator muscle. The subcutaneous layer was closed with 2-0 Vicryl. The skin was closed with 2-0 chromic in a subcuticular fashion. Hemostasis was achieved. A Betadine moistened vaginal pack was placed into the vagina. A rectal exam was done and there were no sutures palpable in the rectum. Gloves were changed. Attention was then turned back to the abdomen where the abdominal cavity was re- insufflated with carbon dioxide gas. The pelvis was examined and there was no bleeding noted. The instruments were removed from the abdomen. The CO2 was allowed to escape. The abdominal incisions were closed with 4-0 Monocryl in a subcuticular fashion. The urine was clear. Sponge, lap, and instrument counts were correct x-2. The patient tolerated the procedure well, was taken to PACU in stable condition. Complications: none Post-operative Condition: stable Disposition: PACU Plan for aftercare: To acute care after recovery
[2021-12-28] MEDS: HYDROMORPHONE 2 MG INJ IV ×2 (13:51→13:56)
--- NOTE | 2021-12-28 14:05 | SUR.PHASEI ---
Report called to floor nurse, all questions answered
[2021-12-28] MEDS: IBUPROFEN 600 MG TABLET PO (15:01)
[2021-12-28] MEDS: DOCUSATE 100 MG CAPSULE 200 MG PO (21:42)
[2021-12-28] MEDS: TRAMADOL 50 MG TABLET PO (21:43)
[2021-12-29] MEDS: LACTATED RINGERS 1,000 ML 100 ML IV (01:41)
[2021-12-29 06:03] LABS: Add Manual Diff / Slide Review NO; Basophils Absolute Auto 0 /uL (0-100); Eosinophils Absolute Auto 0 /uL (0-450); Hematocrit 37.3 % (36-46); Hemoglobin 12.4 g/dL (12.0-16.0); Lymphocytes Absolute Auto 900 /uL (1100-4500); Lymphocytes Percent Auto 7.6 % (25-40); Mean Corpuscular HGB Conc 33.3 % (30-36); Mean Corpuscular Hemoglobin 29.9 PG (26-34); Mean Corpuscular Volume 89.8 fL (80-100); Monocytes Absolute Auto 700 /uL (0-900); Monocytes Percent Auto 6.2 % (3-14); Neutrophils Absolute Auto 10000 /uL (1500-7000); Neutrophils Percent Auto 86.2 % (50-75); Platelet Count 192 X10^3/uL (150-400); Red Blood Cell Count 4.15 X10^6/uL (4.0-5.2); White Blood Cell Count 11.6 X10^3/uL (4.5-11.0)
[2021-12-29 06:04] VITALS: BP 137/63; PULSE 64; RESP 16; TEMP 36.4; O2SAT 93
--- NOTE | 2021-12-29 06:05 | PC.NURSE ---
Pts anand and vaginal packing were removed at 0550. Pt handled it well and was able to stand up with SBA after removal. Pt was educated that she needs to void by 1350 and to use the call light when she needs to get up. Fluids were also DC'd at this time.
[2021-12-29 06:28] LABS: BUN Creatinine Ratio 31.4 (6-22); Blood Urea Nitrogen 16 mg/dL (7-17); Calcium 8.8 mg/dL (8.4-10.2); Carbon Dioxide 27 mmol/L (22-32); Chloride 105 mmol/L (98-107); Estimated Glomerular Filt Rate > 60.0 mL/min (>60); Glucose 121 mg/dL (80-110); HEMOLYSIS < 15 (0-50); Potassium 4.5 mmol/L (3.4-5.1); Sodium 136 mmol/L (137-145)
[2021-12-29 07:00] VITALS: BP 118/47; PULSE 54; RESP 20; TEMP 36.9; O2SAT 95
[2021-12-29 09:27] VITALS: O2SAT 95
[2021-12-29] MEDS: ACETAMINOPHEN 325 MG TABLET 650 MG PO (09:28)
[2021-12-29] MEDS: DOCUSATE 100 MG CAPSULE 200 MG PO (09:28)
[2021-12-29] MEDS: IBUPROFEN 600 MG TABLET PO (09:29)
[2021-12-29 11:00] VITALS: BP 119/47; PULSE 59; RESP 20; TEMP 37.4; O2SAT 93
--- NOTE | 2021-12-29 11:30 | CM.DANOTE ---
DCP: Case received, EMR reviewed and met with patient. Introduced self and role. Was able to obtain information regarding patient's baseline activity level at home prior to her surgery. DCP assessment completed with information currently available. Patient is a 76 year old female who admitted yesterday morning to the care of the [facility] team. PCP: Dr. Spears. Payer: confirmed: Medicare/[facility]. Patient came to the hospital via private vehicle for a surgical procedure. Patient had LAVH/bilateral salpingectomy/anterior and posterior repair secondary to history of uterine prolapse, cystocele, and rectocele. Met with patient in her room. She was sitting up in bed, alert and oriented, pleasant. Confirmed that patient resides here in [place] with her spouse, Eligio. She is independent at her baseline, patient indicated, she stays busy. Her and spouse recently returned from [facility]. She also confirmed that her spouse should be able to assist her as needed. P: Patient has discharge orders to go home today. Rose Marie Grimes RN/Secondary History Teacher Discharge Planning/Care Management CM Discharge Assessment Start: 12/29/21 11:29 Freq: Status: Active Protocol: Document 12/29/21 11:29 (Rec: 12/29/21 11:30 [id number]) Discharge Planning Assessment Assigned Felt Finisher Rose Marie Grimes RN/Secondary History Teacher Advance Directives? Yes Advance Directives on File Yes History Provided By Patient,Medical Record Prior Living Arrangements House Household Members spouse Type of transporation used prior to Drives own vehicle admit Independent with ADL's Yes Is patient alert and oriented? Yes Caregiver for Another No Barriers to Discharge No Discharge Plan Home Transportation Arrangement Spouse Referrals Initiated None needed Whiteboard Updated in Patient Room with Yes name and ext. # of Felt Finisher Review Status In Process Next Review Type Continued Stay Review Pre-Anesthesia Assessment Start: 12/18/21 08:37 Freq: Status: Active Protocol: Document 12/18/21 08:37 CAB (Rec: 12/18/21 09:33 CAB [id number]) Pre-Anesthesia Assessment Patient Information Reviewed Via Phone Assessment Assessment Completed With Patient Comment COVID screen @ 12/27/21 Primary Care Provider Kristopher Spears Seen Specialist in Last 12 Months Yes Specialist Seen Emergency,Special Effects Person Primary Language Macedonian Height 5 ft 3 in Weight 169 lb Body Mass Index (BMI) 29.9 Hearing Ability Normal Visual Assist Magnifying Glass Dentition Type Teeth, Natural Present,Teeth, Missing Barriers to Learning None Hx Anesthesia Reactions No Hx Family Anesthesia Reaction No Hx Malignant Hyperthermia No Hx Blood Transfusions No Anesthesia Review Requested No Power Technician No alcohol intake current alcohol intake frequency 0-2 drinks per day Smoking Status Never smoker Substance Use Type does not use Pain Present Pain Reported Comment Arthiritis pain Musculoskeletal Symptoms Joint Pain History of Falling (Recent or History of No ) Patient is completely paralyzed or No completely immobile Mental Status Oriented to own ability Is patient on oxygen? No Does patient have MASSEY/SOB No Hx Sleep Apnea No Currently Taking a Beta [place] No Can You Climb a Flight of Stairs Without Yes SOB Hx Chest Pain No Hx SOB No Hx Syncope or Dizziness No Anti-Coagulant Therapy No Has a Electromechanical Assembly Technician No Cardiac Testing No Hx Pacemaker/ICD No Pacemaker Rep Required? No Cardiac Clearance Received Not Applicable Diet Type At Home Regular dysphagia No Bladder Pattern Urgency Urinary Catheter Present No Hx Urinary Self Catheterization No Diabetes No Patient No Lactating No Hx Drug Resistant Organism No Presence of External or Internal Medical Yes: Left elbow pin Devices Have you had any close contact with Yes: Pt had omicron 10/24/21 someone diagnosed with COVID-19? Received a COVID vaccine? Yes Received all doses? Yes Marital Status Lives With spouse Prior Living Arrangements House Number of Floors (Floors) Two Floors Support System Spouse Does the Patient Have Assistance After Yes Surgery Patient Discharge Plan Description Return Home Comment Pt advised one night length of stay per surgeon Feels Safe in Current Environment Yes Been Physically Hurt or Threatened By a No Person in Current Environment Do you have thoughts of harming yourself None or others? Are you currently considering suicide? No Do you have a plan to hurt yourself or No Plan others? Do You Have Any Spiritual Beliefs That No May Affect Your HC Choices? Do You Have Any Cultural Practices That No May Affect Your HC Choices? Who Can We Speak to About Patient's Care Family, friends Identifying Code for Release of Patient [employer] Information Health Care Proxy/Next of Kin Eligio () Jesi ( daughter) Health Care Proxy Phone Number Eligio: [phone] Jesi: [phone] Emergency Contact Name Eligio () Jesi ( daughter) Emergency Contact Phone Number Eligio: [phone] Jesi: [phone] Advance Directives? No: Pt currently working on Power of Gas And Oil Checker No: Pt currently working on PAC Instructions Medications to take/avoid,No ETOH/petroleum product on skin DOS,NPO,Post-op transportation,Sturdy shoes/ comfortable clothes,Do not bring valuables and remove jewelry
--- NOTE | 2021-12-29 12:42 | PC.NURSE ---
Addendum entered by Catalina Vasques R.N. 12/29/21 12:43: PVR 75 ml Original Note: Day shift note: Notified Dr. Lopez regarding output amount and PVR.
--- NOTE | 2021-12-29 13:32 | PC.NURSE ---
Discharge note: Patient discharge home per MD orders. Discussed importance of F/U with Dr. Ferrer in two weeks, signs of worsening symptoms, and new Rx medication safe use/adherence. Patient verbalized understanding of discharge instructions. Home via private vehicle accompanied by spouse, will scrap picker Rx at [facility].
== END 2021-12-29 13:50 | disposition home or self-care (01) ==
LOC: OR 08:18 → AC 08:18
PROVIDERS: PCP Family Medicine; Referring Provider Obstetrics & Gynecology; Visit Provider Obstetrics & Gynecology
PROC: 0UT9FZZ Resection of Uterus, Via Natural or Artificial Opening With Percutaneous Endoscopic Assistance (ICD-10-PCS; CPT 58552; principal; 2021-12-28 09:45)
PROC: (CPT 58552; 2021-12-28 09:45)
DX: N81.3 Complete uterovaginal prolapse (principal); E03.9 Hypothyroidism, unspecified; I10 Essential (primary) hypertension; E78.5 Hyperlipidemia, unspecified; D25.9 Leiomyoma of uterus, unspecified
CPT/HCPCS: 58552; 57240; 36415; 80048; 85025; 94760; 94762; J0131; J0171; J1100; J1170; J2250; J2405; J2704; J3010

== ENCOUNTER → 2022-03-16 09:16 | Outpatient (CLI) | payer MEDICARE, OTHER, SELFPAY ==
[2021-12-28 15:02] VITALS: BMI 29.9
--- NOTE | 2022-03-16 09:18 | DI.RAD.S_ITS ---
PROCEDURE: XR KNEE LT 3V INDICATIONS: left knee djd TECHNIQUE: 3 views of the knee were acquired. COMPARISON: None. FINDINGS: Bones: No fractures or dislocations. No suspicious bony lesions. Moderate medial and patellofemoral compartment narrowing. Minimal periarticular osteophytes are present. No erosions. Soft tissues: Mild joint effusion. No suspicious soft tissue calcifications. IMPRESSION: Medial patellofemoral arthritic change as above. Dictated by: Pat Nolasco M.D. on 03/16/2022 at 17:26 Approved by: Pat Nolasco M.D. on 03/16/2022 at 17:27
--- NOTE | 2022-03-16 09:18 | DI.RAD.S_ITS ---
PROCEDURE: XR LUMBAR SPINE MIN 4V INDICATIONS: BACK PAIN TECHNIQUE: 5 views of the lumbar spine were acquired, including bilateral oblique views. COMPARISON: None. FINDINGS: Bones: 5 nonrib-bearing vertebrae are present. There is mild, approximately 4 millimeters of L3-L4 retrolisthesis. There is trace, approximately 2 millimeters of L2-L3 and L4-L5 retrolisthesis. No vertebral body compression fractures. No suspicious bony lesions. Mild degenerative disc changes noted throughout the lumbar spine. Moderate facet hypertrophy noted throughout the lumbar spine. Soft tissues: Overlying bowel gas pattern is normal. No suspicious soft tissue calcifications. Oblique images: No pars defects. IMPRESSION: 1. Multilevel degenerative disc disease. 2. Multilevel facet arthropathy. 3. No fracture. No acute osseous lesion. If symptoms and/or clinical suspicion for pathology persists, evaluation with MRI should be considered for further assessment. Dictated by: Randa Tesfaye MD, PhD on 03/16/2022 at 12:18 Approved by: Randa Tesfaye MD, PhD on 03/16/2022 at 12:19
== END ==
PROVIDERS: PCP Family Medicine; Referring Provider Physical Medicine & Rehabilitation; Visit Provider Physical Medicine & Rehabilitation
DX: M51.26 Other intervertebral disc displacement, lumbar region (principal); M47.816 Spondylosis without myelopathy or radiculopathy, lumbar region; M51.36 Other intervertebral disc degeneration, lumbar region; M16.9 Osteoarthritis of hip, unspecified; M17.12 Unilateral primary osteoarthritis, left knee
CPT/HCPCS: 72110; 73562

== ENCOUNTER → 2022-04-03 10:35 | Outpatient (CLI) | payer MEDICARE, OTHER, SELFPAY ==
[2021-12-28 15:02] VITALS: BMI 29.9
[2022-04-03 12:11] LABS: COVID19 -Nasal RAPID Negative (Negative)
== END ==
PROVIDERS: PCP Family Medicine; Visit Provider Physical Medicine & Rehabilitation
DX: Z20.822 Contact with and (suspected) exposure to COVID-19 (principal)
CPT/HCPCS: 87635; C9803

== ENCOUNTER 2022-04-05 10:27 | Outpatient (CLI) | payer MEDICARE, OTHER, SELFPAY ==
[2021-12-28 15:02] VITALS: BMI 29.9
[2022-04-05] VITALS (8 sets, daily range): BP systolic 147–182; BP diastolic 71–87; PULSE 52–60; RESP 12–19; TEMP 36.2; O2SAT 95–99
--- NOTE | 2022-04-05 10:28 | DI.RAD.S_ITS ---
PROCEDURE: PAIN SI JOINT INJECTION INDICATIONS: Left sacroiliac joint injection COMPARISON: [facility], CR, XR HIP W PEL IF DONE BLADIMIR 3TO4V, 05/12/2021, 12:02. [facility], XA, PAIN L/S TRANSFORAMINAL INJECT, 05/23/2021, 13:33. FINDINGS: On these intraprocedural images, there is a spinal needle seen overlying the inferior aspect of the left sacroiliac joint. Appropriate position of the tip of the needle was confirmed by injection of a small amount of iodinated contrast. IMPRESSION: Successful sacroiliac joint injection. Dictated by: Shukri Moore M.D. on 04/05/2022 at 11:40 Approved by: Shukri Moore M.D. on 04/05/2022 at 11:41
[2022-04-05] MEDS: MIDAZOLAM 2 MG/2 ML VIAL IV (11:44)
[2022-04-05] MEDS: IOPAMIDOL 15 ML VIAL 3 ML INJ (11:48)
[2022-04-05] MEDS: BUPIVACAINE 0.5% (PF) VIAL 2 ML INJ (11:48)
[2022-04-05] MEDS: BETAMETHASONE 30 MG/5 ML MDV 12 MG INJ (11:48)
--- NOTE | 2022-04-05 11:58 | PM.PROC.IR.1 ---
Date/Time/Diagnoses Date of procedure: 04/05/22 Time of procedure: 11:58 Pre-procedure diagnosis: Sacroiliac Joint Pain/DJD Post-procedure diagnosis: same Procedure Notes Procedure: Fluoroscopically guided contrast controlled left sacroiliac joint injection Indications: Maren is referred by Dr. Spears for treatment of left sacroiliac joint DJD Physician: Conrado Allen Total Fluoroscopy time (seconds): 9 Total sedation minutes: 11 Complications: none Procedure in detail & Post-procedure care: DESCRIPTION OF PROCEDURE Fluoroscopic guided, contrast controlled left sacroiliac joint injection Following review of allergies and review of potential side effects and complications, including, but not necessarily limited to, infection, allergic reaction, local tissue breakdown, temporary as well as permanent nerve injury, paralysis, stroke and possible , the patient indicated that they understood and agreed to proceed. An informed consent was signed by the patient, witnessed by a nurse, and placed in the patient's chart. Additionally, other treatment options including modalities, medications, and physical therapy were reviewed with the patient. After review of previous anaesthesic history and IV conscious sedation the patient was deemed safe to proceed with today?s procedure with IV conscious sedation as ASA class II designation. Safety time-out was performed to confirm patient ID, procedure to be performed and site of procedure. IV sedation was accomplished with a combination of 2mg of Versed administered by the RN after DO order, titrated to patient comfort during the course of the procedure while the patient remained responsive to all verbal commands. In the prone position following sterile prep and drape of the pelvic region, the hyper lucency on in the inferior aspect of the left sacroiliac joint was identified fluoroscopically the skin was anesthetized be a 25 gauge 1 eventual with approximately 2cc of 1% lidocaine solution. At this point, a 22 gauge 3inch spinal needle was atraumatically introduced and advanced under fluoroscopic guidance into the inferior aspect of the left sacroiliac joint. Following negative aspiration, approximately 0.3cc of Isovue-300 was injected confirming intra-articular placement without vascular uptake. Radiographic data, including multiple fluoroscopic views of the pelvis, reveals a spinal needle in the left sacroiliac joint hyper lucent zone. Subsequent view show flow contrast tear superiorly and inferiorly within the joint capsule without vascular intrathecal uptake. At this point a total of 1cc or 0.5% Marcaine was combined with 1cc of 6mg of betamethasone was injected without incident. The patient tolerated the procedure well without signs or symptoms of complications prior to transfer to the recovery area for further monitoring. The patient was then transferred to the recovery area with a bur observed for an appropriate time after the injection. The patient reverted a vas score of 7 prior to the procedure and postprocedure vas of 1. POSTOP INSTRUCTIONS The patient was provided with a pain like to continue to record the patient's response to the target specific procedure prior to the patient's follow-up visit with the referring physician. Additionally, specific post injection care instructions and a contact number to our office were provided if concerns arise regarding the possible complications associated with procedure are suspected.
== END 2022-04-05 12:33 | disposition home or self-care (01) ==
LOC: RAD 10:28
PROVIDERS: PCP Family Medicine; Referring Provider Physical Medicine & Rehabilitation; Visit Provider Physical Medicine & Rehabilitation
DX: M53.3 Sacrococcygeal disorders, not elsewhere classified (principal); M46.1 Sacroiliitis, not elsewhere classified
CPT/HCPCS: 27096; 99152; J0702; J2250

== ENCOUNTER 2022-11-26 06:55 | Day surgery (SDC) | payer MEDICARE, OTHER, SELFPAY ==
[2021-12-28 15:02] VITALS: BMI 29.9
[2022-11-19 15:18] VITALS: BMI 29.5
[2022-11-26] VITALS (14 sets, daily range): BP systolic 101–161; BP diastolic 50–82; PULSE 50–88; RESP 9–17; TEMP 36.1–36.6; O2SAT 92–100; BMI 28.7
[2022-11-26] MEDS: LACTATED RINGERS 1,000 ML 100 ML IV ×2 (07:25→10:25)
--- NOTE | 2022-11-26 07:58 | P.HPOB_ITS ---
History of Present Illness History of Present Illness Reason for admission: pelvic prolapse (Vaginal vault prolapse) Narrative: Maren Zimmer is a 77 year old female 3 para 3 who presents for a sacral spinous ligament fixation due to vaginal vault prolapse. [facility] Medical History (Updated 11/04/22 @ 15:53 by Maribel Ferrer MD) BCC (basal cell carcinoma) Calcium pyrophosphate deposition disease De Quervain's tenosynovitis, right Degenerative joint disease (DJD) of hip Facet arthropathy, lumbar Hereditary hemochromatosis Herniated nucleus pulposus, L3-4 left History of Herrera-Wilder toxic epidermal necrolysis overlap syndrome Hyperlipidemia Hypertension Hypothyroidism Insomnia Left knee DJD Osteoarthritis Osteopenia (06/14/14) Primary osteoarthritis, right shoulder Sacral dysfunction Surgical History (Updated 11/19/22 @ 15:22 by Mariaelena Madden RN) History of carpal tunnel repair (~09/2021) History of laparoscopic-assisted vaginal hysterectomy (12/28/21) Hx of arthroscopy of left knee Hx of colonoscopy Hx of elbow surgery Hx of eye surgery Hx of removal of cyst S/P medial meniscectomy of left knee Family History Sister Heart disease Thyroid disorder RA (rheumatoid arthritis) Social History household members: spouse Smoking Status: Never smoker second hand exposure: No alcohol intake: current substance use type: does not use Meds Home Medications and Allergies Home Medications Medication Instructions Recorded Confirmed Type acetaminophen 325 mg capsule 650 mg PO Q6H PRN Pain 08/10/20 11/26/22 History (Tylenol) diclofenac sodium 1 % topical gel 2 g topical ONCE PRN Pain 08/10/20 11/26/22 History losartan 25 mg tablet 25 mg PO DAILY 11/07/20 11/26/22 History meloxicam 7.5 mg tablet 7.5 mg PO BID 07/16/22 11/26/22 History estradiol 0.01% (0.1 mg/gram) See Rx Instructions .Route 09/10/22 11/26/22 Rx vaginal cream .COMPLEX #42.5 grams Allergies Allergy/AdvReac Type Severity Reaction Status Date / Time amoxicillin [AMOXICILLIN] Allergy Severe Ulcers in Verified 11/26/22 07:07 mouth - severe drug rash - skin peeled ampicillin [AMPICILLIN] Allergy Severe Severe Verified 11/26/22 07:07 drug rash, ulcers in mouth, peeling of skin Sulfa (Sulfonamide Allergy Mild HIVES Verified 11/26/22 07:07 Antibiotics) [SULFA (SULFONAMIDE ANTIBIOTICS)] metronidazole [METRONIDAZOLE] AdvReac Severe Herrera Verified 11/26/22 07:07 Wilder syndrome ciprofloxacin [From CIPRO] AdvReac Intermediate Torn Verified 11/26/22 07:07 meniscus PENICILLIN Allergy Severe Urticaria Uncoded 09/26/22 09:17 swelling Exam Vital Signs (past 8 hours): - 11/26/22 07:15 Temperature 97.6 F Pulse Rate 88 Respiratory Rate 16 Blood Pressure 161/82 H Pulse Oximetry 98 Oxygen Delivery Method Room Air Oxygen Delivery Method Room Air Narrative Exam Narrative: HEENT: No thyromegaly, no anterior cervical or supraclavicular lymphadenopathy. Lungs:Clear to auscultation bilaterally, no wheezes. Cardiovascular: Regular rate and rhythm, no murmurs, rubs, or gallops. Abdomen: Well-healed laparoscopy scars. No hepatosplenomegaly. No masses palpable. External genitalia: Normal Vagina: Third-degree vaginal vault prolapse Cervix: Absent Bimanual exam: No masses or tenderness Extremities: No edema Assessment & Plan Assessment & Plan narrative: Assessment: 77-year-old 3 para 3 with vaginal vault prolapse Plan: Sacral spinous ligament fixation The risks, benefits, and alternatives to the procedure were explained to the patient. The risks including bleeding, infection, and injury to the rectum. She understands these risks and agrees to proceed. A full par Q was held and consent form was signed. Time Spent With Patient Time with patient: less than 30 minutes Critical Care time: I spent a total of [] minutes of critical care time on this patient's care today; this time is exclusive of procedural time.
--- NOTE | 2022-11-26 08:00 | PM.PREOP ---
Pre-operative Note COVID-19 Criteria for continued procedure: Non-surgical alternatives not available or appropriate per current SOC Interval Note History & Physical reviewed/Exam performed by Physician: Yes Changes to H&P: No H&P completed within 30 days and has changed as indicated here:: 11/26/22
[2022-11-26] MEDS: CLINDAMYCIN 900 MG/50 ML PIGGYBACK 50 MG IV (08:15)
--- NOTE | 2022-11-26 08:23 | SUR.OPER ---
Lithotomy on padded OR bed, head on pillow, arms secured on padded arm boards at <90 degrees abduction. Legs secured in padded yellow fins stirrups. Pt positioned per direction and supervision of Dr Ferrer.
[2022-11-26] MEDS: BUPIVACAINE 0.25% W/ EPI 30 ML VIAL INJ (08:35)
--- NOTE | 2022-11-26 09:33 | P.OP_ITS ---
Operative Date/Time/Diagnoses Date of procedure: 11/26/22 Time of procedure: 09:33 Pre-op diagnosis: Vaginal vault prolapse Post-op diagnosis: same Procedure & Clinicians Procedure: Procedures Operation Date: 11/26/22 07:45 Actual Procedure Side Surgeon p sacrospinous ligament fixation Not Applicable Maribel Ferrer MD Indications: Third-degree vaginal vault prolapse Surgeon: Maribel Ferrer Agriculture Teacher: Catherine Reynolds Anesthesia Type: General and Local Operative Notes Findings: Third-degree vaginal vault prolapse Attenuated left sacral spinous ligament Closure Type: primary Specimen(s): none Estimated blood loss (mL): 10 Blood products transfused: none Procedure in detail: After informed consent was obtained, the patient was taken to the operating room where she was placed in the dorsal supine position. After adequate general endotracheal anesthesia was achieved, she was placed in the dorsal lithotomy position, and prepped and draped in the usual sterile fashion. A time-out was performed. A weighted speculum was placed into the vagina. The apex of the vaginal vault prolapse was grasped with hemostats. 6 cc of 0.25% Marcaine with epinephrine were injected between the 2 hemostats. An incision was made with the # 10 blade between the 2 hemostats. The mucosa was dissected off of the underlying tissue. A stay suture was placed to la the apex. On the patient's left side, 2 Allis clamps were placed approximately 4 cm apart on the lateral posterior wall of the vagina. 6 cc of 0.25% Marcaine with epinephrine were injected submucosally. A 4 cm incision was made. This was dissected bluntly down to the sacral spinous ligament on the left side. This was found to be very attenuated, but 2 cm from the ischial spine, 2-0 Prolene stitch was placed into the sacral spinous ligament. An incision was made between the vaginal vault apex and the left lateral incision. Using the Capio needle the 2-0 Prolene was placed through the vaginal cuff, with care to avoid the mucosa. The vaginal m ucosa was closed with 2-0 Vicryl in a running fashion. After several sutures the Prolene suture was tied down to the left sacral spinous ligament. The remainder of the vaginal mucosa was closed with 2 0 Vicryl in a running fashion. A red rubber catheter was placed into the bladder and there was 150 cc of clear yellow urine. A rectal exam was performed and there were no sutures palpable. A Betadine moistened vaginal packing was placed into the vagina. Sponge, lap, and instrument counts were correct x2. The patient tolerated the procedure well, and was taken to PACU in stable condition. Complications: none Post-operative Condition: stable Disposition: PACU Plan for aftercare: To acute care after recovery
[2022-11-26] MEDS: HYDROMORPHONE 2 MG INJ IV ×2 (09:41→09:54)
[2022-11-26] MEDS: OXYCODONE IR 5 MG TABLET PO ×2 (09:54→17:15)
[2022-11-26] MEDS: IBUPROFEN 600 MG TABLET PO (09:57)
--- NOTE | 2022-11-26 10:30 | SUR.PHASEI ---
Report called to Inge
--- NOTE | 2022-11-26 10:41 | SUR.PHASEI ---
Patient transferred to the floor by Brenda with belongings bag.
[2022-11-26] MEDS: LACTATED RINGERS 1,000 ML 70 ML IV (11:12)
[2022-11-26] MEDS: ACETAMINOPHEN 325 MG TABLET 650 MG PO (17:15)
--- NOTE | 2022-11-26 18:10 | PM.PNPO.1 ---
Subjective Subjective Date Patient Seen: 11/26/22 Time Patient Seen: 18:10 Interval history: Patient is a 77-year-old postop day # 0 status post a sacral spinous ligament fixation. She has expressed the desire to go home. She has tolerated a diet. She is ambulating independently. She has voided several times without difficulty. She is passing flatus. Exam Vital Signs (past 8 hours): - 11/26/22 10:12 11/26/22 10:26 11/26/22 10:58 Temperature 96.9 F L 97.1 F L Pulse Rate 50 L 52 L 50 L Respiratory Rate 10 L 11 L 12 Blood Pressure 105/53 L 123/61 110/50 L Pulse Oximetry 100 100 97 Oxygen Delivery Method Room Air Oxygen Flow Rate 0 11/26/22 11:17 11/26/22 11:19 11/26/22 11:45 Temperature 97.2 F L 97.4 F L Pulse Rate 53 L 52 L Respiratory Rate 16 16 Blood Pressure 128/66 112/52 L Pulse Oximetry 95 95 Oxygen Delivery Method Room Air Oxygen Flow Rate 0 0 11/26/22 12:45 11/26/22 13:45 Temperature 97.7 F 97.8 F Pulse Rate 67 58 L Respiratory Rate 16 16 Blood Pressure 121/64 118/78 Pulse Oximetry 95 94 Oxygen Delivery Method Oxygen Flow Rate 0 0 Oxygen Delivery Method Room Air Oxygen Flow Rate 0 Narrative Exam Narrative: Generally: Patient is sitting up in bed, eating dinner, no acute distress Lungs: Clear to auscultation bilaterally Cardiovascular: Regular rate and rhythm Perineum: Dry. Vagina: Packing in place. This is removed with minimal blood. [facility] Medical History (Updated 11/04/22 @ 15:53 by Maribel Ferrer MD) BCC (basal cell carcinoma) Calcium pyrophosphate deposition disease De Quervain's tenosynovitis, right Degenerative joint disease (DJD) of hip Facet arthropathy, lumbar Hereditary hemochromatosis Herniated nucleus pulposus, L3-4 left History of Herrera-Wilder toxic epidermal necrolysis overlap syndrome Hyperlipidemia Hypertension Hypothyroidism Insomnia Left knee DJD Osteoarthritis Osteopenia (06/14/14) Primary osteoarthritis, right shoulder Sacral dysfunction Surgical History (Updated 11/19/22 @ 15:22 by Mariaelena Madden RN) History of carpal tunnel repair (~09/2021) History of laparoscopic-assisted vaginal hysterectomy (12/28/21) Hx of arthroscopy of left knee Hx of colonoscopy Hx of elbow surgery Hx of eye surgery Hx of removal of cyst S/P medial meniscectomy of left knee Family History Sister Heart disease Thyroid disorder RA (rheumatoid arthritis) Social History household members: spouse Smoking Status: Never smoker second hand exposure: No alcohol intake: current substance use type: does not use Assessment & Plan Post-op Postoperative Procedures: Procedures Operation Date: 11/26/22 07:45 Actual Procedure Side Surgeon p sacrospinous ligament fixation Not Applicable Maribel Ferrer MD Postoperative day: 0 Postoperative status: doing well Postoperative status narrative: Postop day #0 status post sacral spinous ligament fixation, doing very well Patient expresses a desire to go home Postoperative plan: discharge Postoperative plan narrative: Discharge to home Follow-up as scheduled on December 24, 2022 No heavy lift Stool softeners Time Spent With Patient Time with patient: 15-24 minutes Quality VTE Deep Vein Thrombosis/Pulmonary Embolism Present on Admission: No
== END 2022-11-26 19:45 | disposition home or self-care (01) ==
LOC: OR 06:56 → AC 10:52
PROVIDERS: PCP Family Medicine; Referring Provider Obstetrics & Gynecology; Visit Provider Obstetrics & Gynecology
PROC: (CPT 57282; principal; 2022-11-26 07:45)
DX: N81.3 Complete uterovaginal prolapse (principal)
CPT/HCPCS: 57282; J1100; J1170; J2250; J2405; J2704; J3010

== ENCOUNTER → 2022-11-30 12:31 | Outpatient (CLI) | payer MEDICARE, OTHER, SELFPAY ==
[2022-11-26 10:59] VITALS: BMI 28.7
[2022-11-30 12:58] LABS: Bilirubin Urine UA NEGATIVE (NEGATIVE); Color Urine UA YELLOW; Glucose Urine UA NEGATIVE (Negative); Ketones Urine UA NEGATIVE (NEGATIVE); Leukocyte Esterase Urine UA 2+ (NEGATIVE); Nitrite Urine UA POSITIVE (Negative); Occult Blood Urine UA 3+ (Negative); Protein Urine UA 2+ (Negative); Specific Gravity Urine UA 1.025 (1.000-1.035); Urobilinogen Urine UA 0.2 E.U./dL (0.2)
[2022-11-30 13:01] LABS: Appearance Urine UA CLOUDY
[2022-11-30 13:09] LABS: Amorphous Sediment Urine 2+; Bacteria Urine Moderate (10-30); Culture Indicated Urine Specimen Cultured; Mucus Urine 1+ (Negative); RBC Urine >100/HPF (0-5/HPF); Renal Epithelial Cells Urine 1-5/HPF (0-1/HPF); Squamous Epithelial Cell Urine 1-5 /HPF (0-5/HPF); WBC Urine 10-30/HPF (0-5/HPF)
== END ==
PROVIDERS: PCP Family Medicine; Referring Provider Obstetrics & Gynecology; Visit Provider Obstetrics & Gynecology
DX: N39.0 Urinary tract infection, site not specified (principal)
CPT/HCPCS: 81003; 81015; 87077; 87086; 87186

== ENCOUNTER → 2022-12-15 12:47 | Outpatient (CLI) | payer MEDICARE, OTHER, SELFPAY ==
[2022-11-26 10:59] VITALS: BMI 28.7
[2022-12-15 13:25] LABS: Appearance Urine UA CLOUDY; Bilirubin Urine UA NEGATIVE (NEGATIVE); Color Urine UA YELLOW; Glucose Urine UA NEGATIVE (Negative); Ketones Urine UA TRACE (NEGATIVE); Leukocyte Esterase Urine UA 2+ (NEGATIVE); Nitrite Urine UA NEGATIVE (Negative); Occult Blood Urine UA 3+ (Negative); Protein Urine UA 2+ (Negative); Specific Gravity Urine UA 1.025 (1.000-1.035); Urobilinogen Urine UA 0.2 E.U./dL (0.2)
[2022-12-15 13:26] LABS: pH Urine UA 5.5 (4.5-8.0)
[2022-12-15 13:31] LABS: Bacteria Urine Many (>30); Culture Indicated Urine Specimen Cultured; RBC Urine 5-10/HPF (0-5/HPF); Squamous Epithelial Cell Urine 1-5 /HPF (0-5/HPF); WBC Urine >100/HPF (0-5/HPF)
== END ==
PROVIDERS: PCP Family Medicine; Referring Provider Obstetrics & Gynecology; Visit Provider Obstetrics & Gynecology
DX: N39.0 Urinary tract infection, site not specified (principal)
CPT/HCPCS: 81003; 81015; 87077; 87086; 87186

== ENCOUNTER → 2022-12-24 15:10 | Outpatient (CLI) | payer MEDICARE, OTHER, SELFPAY ==
[2022-11-26 10:59] VITALS: BMI 28.7
== END ==
PROVIDERS: PCP Family Medicine; Visit Provider Obstetrics & Gynecology
DX: N39.0 Urinary tract infection, site not specified (principal); R31.9 Hematuria, unspecified
CPT/HCPCS: 87086

== ENCOUNTER → 2022-12-28 11:38 | Outpatient (CLI) | payer MEDICARE, OTHER, SELFPAY ==
[2022-11-26 10:59] VITALS: BMI 28.7
== END ==
PROVIDERS: PCP Family Medicine; Visit Provider Obstetrics & Gynecology
DX: R31.9 Hematuria, unspecified (principal); R35.0 Frequency of micturition
CPT/HCPCS: 87086

== ENCOUNTER 2023-05-02 10:02 | Outpatient (CLI) | payer MEDICARE, OTHER, SELFPAY ==
[2022-11-26 10:59] VITALS: BMI 28.7
[2023-05-02] VITALS (7 sets, daily range): BP systolic 165–208; BP diastolic 77–93; PULSE 56–71; RESP 14–18; TEMP 36.5; O2SAT 93–99
--- NOTE | 2023-05-02 10:03 | DI.RAD.S_ITS ---
PROCEDURE: PAIN SI JOINT INJECTION INDICATIONS: JOINT DYSFUNCTION COMPARISON: [facility], XA, PAIN SI JOINT INJECTION, 04/05/2022, 11:47. FINDINGS: Fluoroscopic spot filming was performed to verify placement of spinal needles at the left SI joint level(s), as labeled on the films. Appropriate location(s) of the needle tip(s) was confirmed by injection of iodinated contrast. IMPRESSION: Access needle in left SI joint for joint injection. Dictated by: Randa Tesfaye MD, PhD on 05/02/2023 at 13:03 Approved by: Randa Tesfaye MD, PhD on 05/02/2023 at 13:04
[2023-05-02] MEDS: MIDAZOLAM 2 MG/2 ML VIAL IV (11:26)
[2023-05-02] MEDS: IOPAMIDOL 15 ML VIAL 3 ML INJ (11:31)
[2023-05-02] MEDS: BUPIVACAINE 0.5% (PF) 10 ML VIAL 2 ML INJ (11:31)
[2023-05-02] MEDS: BETAMETHASONE 30 MG/5 ML MDV 12 MG INJ (11:32)
--- NOTE | 2023-05-02 11:43 | PM.PROC.IR.1 ---
Date/Time/Diagnoses Date of procedure: 05/02/23 Time of procedure: 11:43 Pre-procedure diagnosis: Sacroiliac Joint Pain/DJD Post-procedure diagnosis: same Procedure Notes Procedure: Fluoroscopically guided contrast controlled left sacroiliac joint injection Indications: Lynda is referred by Dr Spears for treatment of left sacroiliac joint DJD Physician: Conrado Allen Total Fluoroscopy time (seconds): 14 Total sedation minutes: 13 Complications: none Procedure in detail & Post-procedure care: DESCRIPTION OF PROCEDURE Fluoroscopic guided, contrast controlled left sacroiliac joint injection Following review of allergies and review of potential side effects and complications, including, but not necessarily limited to, infection, allergic reaction, local tissue breakdown, temporary as well as permanent nerve injury, paralysis, stroke and possible , the patient indicated that they understood and agreed to proceed. An informed consent was signed by the patient, witnessed by a nurse, and placed in the patient's chart. Additionally, other treatment options including modalities, medications, and physical therapy were reviewed with the patient. After review of previous anaesthesic history and IV conscious sedation the patient was deemed safe to proceed with today?s procedure with IV conscious sedation as ASA class II designation. Safety time-out was performed to confirm patient ID, procedure to be performed and site of procedure. IV sedation was accomplished with a combination of 2mg of Versed administered by the RN after DO order, titrated to patient comfort during the course of the procedure while the patient remained responsive to all verbal commands. In the prone position following sterile prep and drape of the pelvic region, the hyper lucency on in the inferior aspect of the left sacroiliac joint was identified fluoroscopically the skin was anesthetized be a 25 gauge 1 eventual with approximately 2cc of 1% lidocaine solution. At this point, a 22gauge 3inch spinal needle was atraumatically introduced and advanced under fluoroscopic guidance into the inferior aspect of the left sacroiliac joint. Following negative aspiration, approximately 0.3cc of Isovue-300 was injected confirming intra-articular placement without vascular uptake. Radiographic data, including multiple fluoroscopic views of the pelvis, reveals a spinal needle in the left sacroiliac joint hyper lucent zone. Subsequent view show flow contrast tear superiorly and inferiorly within the joint capsule without vascular intrathecal uptake. At this point a total of 1cc or 0.5% Marcaine was combined with 1cc of 6mg of betamethasone was injected without incident. The patient tolerated the procedure well without signs or symptoms of complications prior to transfer to the recovery area for further monitoring. The patient was then transferred to the recovery area with a bur observed for an appropriate time after the injection. The patient reverted a vas score of 7 prior to the procedure and postprocedure vas of 1. POSTOP INSTRUCTIONS The patient was provided with a pain like to continue to record the patient's response to the target specific procedure prior to the patient's follow-up visit with the referring physician. Additionally, specific post injection care instructions and a contact number to our office were provided if concerns arise regarding the possible complications associated with procedure are suspected.
== END 2023-05-02 12:02 | disposition home or self-care (01) ==
PROVIDERS: PCP Family Medicine; Referring Provider Physical Medicine & Rehabilitation; Visit Provider Physical Medicine & Rehabilitation
DX: M53.3 Sacrococcygeal disorders, not elsewhere classified (principal); M46.1 Sacroiliitis, not elsewhere classified
CPT/HCPCS: 27096; 77002; 99152; J0702; J2250

== ENCOUNTER 2023-10-07 08:32 | Day surgery (SDC) | payer MEDICARE, SELFPAY ==
[2022-11-26 10:59] VITALS: BMI 28.7
[2023-10-01 14:37] VITALS: BMI 26.4
[2023-10-07] VITALS (11 sets, daily range): BP systolic 116–165; BP diastolic 45–72; PULSE 60–84; RESP 12–18; TEMP 35.7–36.7; O2SAT 93–100; BMI 26.4
[2023-10-07] MEDS: LACTATED RINGERS 1,000 ML 21 ML IV ×2 (09:21→11:28)
--- NOTE | 2023-10-07 09:42 | PM.PREOP ---
Pre-operative Note Interval Note History & Physical reviewed/Exam performed by Physician: Yes Changes to H&P: No
[2023-10-07] MEDS: CLINDAMYCIN 900 MG/50 ML PIGGYBACK 50 MG IV (10:24)
--- NOTE | 2023-10-07 10:30 | SUR.OPER ---
Lithotomy on padded OR bed, head on pillow, arms secured on padded arm boards at <90 degrees abduction. Legs secured in padded yellow fins stirrups.
[2023-10-07] MEDS: BUPIVACAINE 0.5% (PF) 30 ML, EPINEPHrine 0.15 MG INJ (11:03)
--- NOTE | 2023-10-07 11:24 | P.OP_ITS ---
Operative Date/Time/Diagnoses Date of procedure: 10/07/23 Time of procedure: 11:25 Pre-op diagnosis: Vaginal vault prolapse Post-op diagnosis: same Procedure & Clinicians Procedure: Bilateral sacrospinous ligament fixation with anterior repair Same procedure as scheduled: No (Patient with more evident bladder prolapse at the time of procedure than pr) Indications: Symptomatic vaginal vault prolapse Surgeon: Jessie Toussaint Click Yes if Unassisted: Yes Anesthesia Type: General Operative Notes Findings: Vaginal vault prolapse with first-degree cystocele Closure Type: primary Specimen(s): none sent Applied: catheter (Tran) and other (Vaginal packing) Estimated Blood Loss (mL): 10 Blood products transfused: none Procedure in detail: Patient was brought to the operating room where she was placed in yellowfin stirrups and prepped and draped in the usual sterile fashion. A check system was reviewed prior to the beginning of the case. Pulsatile stockings were in place and functional throughout the case. Warming was in place. 900 mg clindamycin were in prior to beginning of the case. A Tran catheter was placed. The posterior vaginal wall was injected with a dilute solution of 1% lidocaine with epinephrine. An incision was made with the scalpel. The dissection was undertaken laterally. 0 Prolene suture with the Capio passer was placed through the uterosacral ligament on the right side and sutured to the und erside of the vagina. A 2nd suture of 0 Monodek was also placed through the uterosacral ligament and the underside of the cervix. Same procedure was performed on the opposite side. A finger was placed in the rectum to be sure there were no sutures placed through the rectal mucosa. The uterosacral sutures were tightened down and the vaginal incision was closed with 2-0 Vicryl suture. A dilute solution of 1% lidocaine with epinephrine were placed over the cystocele. An incision was made with a scalpel. Dissection was undertaken laterally. All Vicryl suture was used to plicate over the cystocele. Excessive vaginal tissue was removed and the vaginal incision was closed with 2-0 Vicryl suture. Vaginal packing was placed in the vagina and the Tran left in place. Patient went to recovery room in stable condition. Complications: none Post-operative Condition: stable Disposition: observation (Vaginal packing will be removed in 6 hours then patient is requesting discharge) Plan for aftercare: Vaginal packing and Tran will be removed in 6 hours and then home after.
[2023-10-07] MEDS: fentaNYL 100 MCG/2 ML INJ IV (11:26)
[2023-10-07] MEDS: OXYCODONE/ACETAMINOPHEN 5/325 TABLET 1 TAB PO (11:35)
--- NOTE | 2023-10-07 11:40 | SUR.PHASEI ---
Report called to Melita Quinonez.
--- NOTE | 2023-10-07 12:07 | SUR.PHASEI ---
Patient transferred to the floor with two belongings bags and a jacket. Patient transferred herself to the bed independently. Report given to Tammy. Tran and DANIEL calix.
--- NOTE | 2023-10-07 13:04 | PC.NURSE ---
Patient has packing that is cdi to vaginal opening. She has a anand putting out yellow urine and is tolerating ivf well. Patient had a prolapse that was fixed. She is tolerating lunch and will leave later today.
[2023-10-07] MEDS: ACETAMINOPHEN 325 MG TABLET 650 MG PO (14:54)
[2023-10-07] MEDS: SODIUM CHLORIDE 0.9% 1,000 ML 100 ML IV (14:54)
--- NOTE | 2023-10-07 16:50 | PM.DS.1 ---
History of Present Illness History of Present Illness Date Patient Seen: 10/07/23 Time Patient Seen: 16:50 Chief complaint: Postoperative vaginal apex prolapse and cystocele Narrative: Patient underwent bilateral sacrospinous ligament fixation with anterior repair on 10/07/2023. Her vaginal packing and Tran catheter were left in place and removed 6 hours after the procedure. Patient is doing well without pain. No nausea. Packing removed and was not saturated. Tran catheter removed. Discharge Providers Provider Discharge Date: 10/07/23 Primary care physician: Kristopher Spears MD Discharge provider: Jessie Toussaint MD Summary Hospital Course Discharge Diagnosis: Vaginal apex prolapse and cystocele Hospital Course: Patient is doing well postoperatively. Vaginal packing and Tran catheter removed. Status at Discharge Cognitive/behavioral status at discharge: oriented Functional status at discharge: independent ambulation Overall status at discharge: patient is progressing back to baseline Time Spent with Patient Time spent: Less than 30 minutes Exam Vital Signs (past 8 hours): - 10/07/23 09:00 10/07/23 11:11 10/07/23 11:16 Temperature 97.2 F L 98.1 F Pulse Rate 66 69 70 Respiratory Rate 16 18 12 Blood Pressure 165/72 H 116/53 L 125/57 L Pulse Oximetry 99 93 93 Oxygen Delivery Method Room Air Room Air Room Air Oxygen Flow Rate 10/07/23 11:21 10/07/23 11:27 10/07/23 11:42 Temperature Pulse Rate 84 71 73 Respiratory Rate 12 14 15 Blood Pressure 135/68 131/68 133/62 Pulse Oximetry 96 96 98 Oxygen Delivery Method Room Air Room Air Room Air Oxygen Flow Rate 10/07/23 11:50 10/07/23 12:05 10/07/23 13:00 Temperature 96.8 F L 96.2 F L 96.7 F L Pulse Rate 64 60 69 Respiratory Rate 12 16 18 Blood Pressure 129/61 136/56 L 127/58 L Pulse Oximetry 97 95 100 Oxygen Delivery Method Room Air Oxygen Flow Rate 0 0 10/07/23 15:00 10/07/23 16:00 Temperature 96.7 F L 96.7 F L Pulse Rate 65 67 Respiratory Rate 18 18 Blood Pressure 122/45 L 132/55 L Pulse Oximetry 95 95 Oxygen Delivery Method Oxygen Flow Rate 0 0 Oxygen Delivery Method Room Air Oxygen Flow Rate 0 Narrative Exam Narrative: Abdomen is soft, nontender. Vaginal packing is not saturated with removal. Extremities without edema and nontender. 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 Hypothyroidism Osteopenia (06/14/14) Insomnia Surgical History (Updated 10/01/23 @ 14:42 by Mariaelena Madden RN) History of gynecologic surgery (11/26/22) History of laparoscopic-assisted vaginal hysterectomy (12/28/21) S/P medial meniscectomy of left knee Hx of eye surgery Hx of removal of cyst Hx of colonoscopy Hx of elbow surgery Hx of arthroscopy of left knee History of carpal tunnel repair (~09/2021) Family History Sister Heart disease Thyroid disorder RA (rheumatoid arthritis) Social History household members: spouse Smoking Status: Never smoker second hand exposure: No alcohol intake: current substance use type: does not use Discharge Assessment & Plan Assessment and Plan Assessment: Postoperative bilateral sacrospinous ligament fixation with anterior repair doing well. Plan of Treatment: Patient will be discharged home to be followed up in 2 weeks. Patient is to call for heavy bleeding, fever, pain. Patient is to make sure she is not constipated with medication if necessary. Discharge Plan Discharge Plan Patient Disposition: Home Discharge orders & Medications Discharge Orders: Discharge (Order); Ordered 10/07/23 Ordered By: Jessie Toussaint Prescriptions: Continued tramadol 100 mg tablet 100 mg PO Q4-6H PRN (Reason: pain) Qty: 20 0RF Rx Instructions: DNExceed 4 doses/24h losartan 25 mg tablet 25 mg PO DAILY Patient Comments: Pt states she takes at bedtime acetaminophen [Tylenol] 325 mg capsule 650 mg PO Q6H PRN (Reason: Pain) diclofenac sodium 1 % gel 2 g topical ONCE PRN (Reason: Pain) meloxicam 7.5 mg tablet 7.5 mg PO BID Follow up/Referrals: Jessie Toussaint MD [Physician] - 10/22/23 (Patient already has postop appointment scheduled on 10/22/2023) Kristopher Spears MD [Primary Care Provider] - Diet/Activity/Treatments Diet: Diet as Tolerated Activity: Do not lift over [address] anything in your vagina for 6 weeks Skin/Wound/Dressing Care Report to your healthcare provider any signs of infection, such as:: chills, fever and increased pain Visit Report/Discharge Packet Stand Alone Forms: Patient Portal/API, Surgery Discharge Discharge Data Primary Care Provider: Kristopher Spears Attending Provider: Jessie Toussaint Quality VTE Deep Vein Thrombosis/Pulmonary Embolism Present on Admission: No
== END 2023-10-07 18:06 | disposition home or self-care (01) ==
LOC: OR 08:33 → AC 11:27
PROVIDERS: PCP Family Medicine; Referring Provider Specialist; Visit Provider Specialist
PROC: (CPT 57282; principal; 2023-10-07 09:45)
DX: N99.3 Prolapse of vaginal vault after hysterectomy (principal)
CPT/HCPCS: 57282; 57240; J0171; J0330; J1100; J1885; J2405; J3010

== ENCOUNTER → 2023-10-18 10:48 | Outpatient (CLI) | payer MEDICARE, SELFPAY ==
[2023-10-07 11:37] VITALS: BMI 26.4
[2023-10-18 18:00] LABS: Appearance Urine UA CLEAR; Bilirubin Urine UA NEGATIVE (NEGATIVE); Color Urine UA YELLOW; Glucose Urine UA NEGATIVE (Negative); Ketones Urine UA NEGATIVE (NEGATIVE); Leukocyte Esterase Urine UA 2+ (NEGATIVE); Nitrite Urine UA POSITIVE (Negative); Occult Blood Urine UA TRACE-INTACT (Negative); Protein Urine UA NEGATIVE (Negative); Specific Gravity Urine UA 1.025 (1.000-1.035)
[2023-10-18 18:04] LABS: pH Urine UA 5.5 (4.5-8.0)
[2023-10-18 18:10] LABS: Bacteria Urine Many (>30); Culture Indicated Urine Specimen Cultured; RBC Urine 0-1/HPF (0-5/HPF); Squamous Epithelial Cell Urine 10-30 /HPF (0-5/HPF); WBC Urine 10-30/HPF (0-5/HPF)
[2023-10-18 18:12] LABS: Urine Volume 10mL (spun)
== END ==
PROVIDERS: PCP Family Medicine; Referring Provider Specialist; Visit Provider Specialist
DX: R30.0 Dysuria (principal)
CPT/HCPCS: 81001; 87077; 87086; 87186

== ENCOUNTER → 2023-11-07 13:56 | Outpatient (CLI) | payer MEDICARE, SELFPAY ==
[2023-10-07 11:37] VITALS: BMI 26.4
[2023-11-07 15:41] LABS: Appearance Urine UA CLEAR; Bilirubin Urine UA NEGATIVE (NEGATIVE); Color Urine UA YELLOW; Glucose Urine UA NEGATIVE (Negative); Ketones Urine UA NEGATIVE (NEGATIVE); Leukocyte Esterase Urine UA 1+ (NEGATIVE); Nitrite Urine UA NEGATIVE (Negative); Occult Blood Urine UA NEGATIVE (Negative); Protein Urine UA NEGATIVE (Negative); Specific Gravity Urine UA <=1.005 (1.000-1.035); Urobilinogen Urine UA 0.2 E.U./dL (0.2)
[2023-11-07 15:48] LABS: Bacteria Urine Occasional (0-1); RBC Urine None Seen (0-5/HPF); Squamous Epithelial Cell Urine 0-1 /HPF (0-5/HPF); Urine Volume 10mL (spun); WBC Urine 1-5/HPF (0-5/HPF)
[2023-11-07 15:49] LABS: Culture Indicated Urine Specimen Cultured
== END ==
PROVIDERS: PCP Family Medicine; Referring Provider Obstetrics & Gynecology; Visit Provider Obstetrics & Gynecology
DX: R30.0 Dysuria (principal)
CPT/HCPCS: 81001; 87077; 87086; 87147

== ENCOUNTER → 2024-03-18 19:45 | Outpatient (CLI) | payer MEDICARE, SELFPAY ==
[2023-10-07 11:37] VITALS: BMI 26.4
--- NOTE | 2024-03-18 19:47 | DI.MRI.S_ITS ---
PROCEDURE: MR LUMBAR SPINE WO CON INDICATIONS: HERNIATED NUCLEUS PULPOSUS, L3-4 LEFT TECHNIQUE: Noncontrast sagittal T1 spin echo and T2 fast echo, sagittal STIR, and T2 fast spin echo through the lumbar spine. In cases with scoliosis, additional coronal T2 fast spin echo may be performed. COMPARISON: [facility], CR, XR LUMBAR SPINE 2 OR 3 VIEWS, 03/06/2023, 11:57. [facility], MR, MR LUMBAR SPINE WO CON, 03/28/2020, 13:20. FINDINGS: Image quality: Excellent. Alignment and Curvature: There is trace anterolisthesis of L1 on L2, trace retrolisthesis of L2 on L3, L3 on L4. Bone Marrow: Marrow is of normal overall signal. However, there is hypointense T1 signal along the anterior superior aspect of T12 and L1 corresponding to increased STIR signal. It is relatively isointense on T2. No acute vertebral body compression fractures. Spinal Cord: Conus medullaris terminates at the L2 level. Visualized cord demonstrates normal signal and size. Paraspinous Soft Tissues: No paravertebral masses. Discs: Multilevel [id number] disc desiccation. T12-L1: Trace disc bulge without spinal stenosis or foraminal narrowing. L1-L2: Minimal disc bulge with mild spinal stenosis. Mild bilateral foraminal narrowing with facet and ligamentum flavum hypertrophy. Overall, no interval change. L2-L3: Mild disc bulge with mild spinal stenosis. Kyen-pj-opdbyele right and mild left foraminal narrowing with facet and ligamentum flavum hypertrophy. Slight interval progression of foraminal narrowing. L3-L4: Mild disc bulge with moderate to severe spinal stenosis. Moderate to severe right and moderate left foraminal narrowing with facet and ligamentum flavum hypertrophy. Mild interval progression of foraminal narrowing. L4-L5: Mild disc bulge with severe spinal stenosis and canal compression, progressive. Severe left foraminal narrowing including narrowing through the subarticular recess. Facet and ligamentum flavum hypertrophy are present. L5-S1: Mild disc bulge with mild spinal stenosis. Moderate subarticular recess bilaterally, unchanged. IMPRESSION: Multilevel degenerative changes with areas of interval progression as above. Spinal stenosis is most severe at L4-5 with canal compression secondary to disc bulge with contributing effect of facet and ligamentum flavum arthropathy. Multilevel foraminal narrowing most severe at L4-5 secondary to facet/ligamentum flavum arthropathy. Dictated by: Pat Nolasco M.D. on 03/19/2024 at 12:12 Approved by: Pat Nolasco M.D. on 03/19/2024 at 12:28
== END ==
PROVIDERS: PCP Family Medicine; Referring Provider Physical Medicine & Rehabilitation; Visit Provider Physical Medicine & Rehabilitation
DX: M51.26 Other intervertebral disc displacement, lumbar region (principal); M51.36 Other intervertebral disc degeneration, lumbar region; M47.816 Spondylosis without myelopathy or radiculopathy, lumbar region; M48.061 Spinal stenosis, lumbar region without neurogenic claudication; M51.37 Other intervertebral disc degeneration, lumbosacral region; M48.07 Spinal stenosis, lumbosacral region
CPT/HCPCS: 72148

== ENCOUNTER → 2024-11-19 09:27 | Outpatient (CLI) | payer MEDICARE, SELFPAY ==
[2024-11-03 14:44] VITALS: BMI 26.4
[2024-11-19 13:11] LABS: Appearance Urine UA CLEAR; Bilirubin Urine UA NEGATIVE (NEGATIVE); Color Urine UA YELLOW; Glucose Urine UA NEGATIVE (Negative); Ketones Urine UA NEGATIVE (NEGATIVE); Leukocyte Esterase Urine UA NEGATIVE (NEGATIVE); Nitrite Urine UA NEGATIVE (Negative); Occult Blood Urine UA NEGATIVE (Negative); Protein Urine UA NEGATIVE (Negative); Urobilinogen Urine UA 0.2 E.U./dL (0.2); pH Urine UA 6.5 (4.5-8.0)
== END ==
PROVIDERS: PCP Family Medicine; Visit Provider Obstetrics & Gynecology Gynecology
DX: N81.9 Female genital prolapse, unspecified (principal); R33.9 Retention of urine, unspecified
CPT/HCPCS: 81003

== ENCOUNTER 2025-03-29 11:00 | Day surgery (SDC) | payer MEDICARE, SELFPAY ==
[2024-11-03 14:44] VITALS: BMI 26.4
[2025-01-07 13:43] VITALS: BMI 28.1
--- NOTE | 2025-03-08 15:28 | PM.GYNHP.1 ---
History of Present Illness History of Present Illness Narrative: Maren Zimmer is a 79 year old female who presents for evaluation of above complaint. She reports onset of symptoms several mo ago. She considers this a Moderate problem. She presents with recurrent prolapse. She has a history of multiple prior surgeries. She reports prolapse of the vaginal bulge to the introitus. Also has symptoms of heaviness and pressure, incomplete bladder emptying, and occasionally asked to splint against the prolapse in order to urinate. She has difficulty urinating and urinary incontinence. Primarily urgency leakage, at risk of occult stress urinary incontinence. Currently not leaking with laughing sneezing cough. Does leak with exercise. However she thinks this is triggering urgency for her. She does have urge incontinence 1-3 x a day. Small leaks , occasionally larger leaks. Voids about every 3-4 hours. Occasionally has to repeat void 15 minutes later. Eight voids per day. One void at night Prior surgeries December 2021 - LAVH, BS (still has both ovaries), anterior and posterior repair, sacrospinous ligament vaginal vault suspension November 2022 - Sacrospinous ligament vaginal vault suspension Sep 2023 - Sacrospinous ligament vaginal vault suspension, anterior repair Still sexually active. she is Interested in surgery. So we discussed possibility of robotic laparoscopic sacral colpopexy. She is wondering about not being sexual active in the future, so we also discussed colpocleisis. She does not want to use a pessary. Has used in the past. She is very active. Does lots of gardening. Bicycling also. Wants to remain active. She is a good surgical candidate. Pelvic Floor Review of Systems ?Stress urinary incontinence (ABIOLA): 0-1? episodes per d Triggers include: exercise, Urge Incontinence (Urge UI): 2-3 episodes per d Triggers include: Full bladder with urge, She wears 2-3 mini pads a day. OAB sx: Frequency: q 3-4 hr, Nocturia: 1 Urgency: + Tobacco Use: No Sexually Active: Yes ? Incontinence with Sex: No ? Prior incontinence treatment includes ? Medical: No Surgical: No Kegels: Yes Physical Therapy: No ? Pessary: Yes ? Diet/Fluids ? Fluid restriction: No ? Excessive fluids: No ? Pain symptoms ? Painful bladder: No ? Dysuria: No Dyspareunia: No Dysmenorrhea: No UTI's recurrent: No Hematuria: No Kidney stones: No ? Pelvic Organ Prolapse (POP) symptoms ? Bulge: Yes ? Pressure and /or Heaviness: Yes Splint for defecation or voiding: Yes ? Voiding dysfunction ? Abnormal stream: No ? Strain to void: Yes Incomplete emptying: No ? Voiding difficulty: Yes ? Retention: No ? Bowel Function ? Constipation: No Strain to defecate: No Fiber: No ? Laxatives: No ? Fecal Incontinence ? Liquid stool: No Solid stool: No UroGyn ROS ROS Narrative ROS Narrative: General Review of Systems: Constitutional, CV, Endo, Musc-skel, Eyes, Cancer, Skin, Breast, GI, Heme/Lymph, Psych, Urinary, Neuro, Vegetable Handler, Resp, Sexual:??? Pertinent positives listed above, all other systems reviewed and negative. ? All reviewed on patient questionnaire.? 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 Hypothyroidism Osteopenia (06/14/14) Insomnia Surgical History (Updated 01/07/25 @ 14:07 by Kathy Olivera RN) History of gynecologic surgery (11/26/22) History of laparoscopic-assisted vaginal hysterectomy (12/28/21) S/P medial meniscectomy of left knee Hx of eye surgery Hx of removal of cyst Hx of colonoscopy Hx of elbow surgery Hx of arthroscopy of left knee History of carpal tunnel repair (~09/2021) Family History Sister Heart disease Thyroid disorder RA (rheumatoid arthritis) Social History marital status: household members: spouse lives independently: Yes Smoking Status: Never smoker second hand exposure: No alcohol intake: current substance use type: does not use Meds Home Medications and Allergies Home Medications ?Medication ?Instructions ?Recorded ?Confirmed ?Type acetaminophen 325 mg capsule 650 mg PO Q6H PRN Pain 08/10/20 01/11/25 History (Tylenol) diclofenac sodium 1 % topical gel 2 g topical ONCE PRN Pain 08/10/20 01/11/25 History estradiol 0.01% (0.1 mg/gram) See Rx Instructions .Route 12/02/23 01/11/25 Rx vaginal cream .COMPLEX #42.5 grams losartan 50 mg tablet 50 mg PO DAILY 03/02/24 01/11/25 History meloxicam 15 mg tablet 15 mg PO DAILY #30 tabs 04/06/24 01/11/25 Rx tramadol 50 mg tablet 50 mg PO BID PRN pain #42 tabs 04/06/24 01/11/25 Rx Allergies Allergy/AdvReac Type Severity Reaction Status Date / Time amoxicillin (AMOXICILLIN) Allergy Severe Ulcers in Verified 01/11/25 13:10 mouth - severe drug rash - skin peeled ampicillin (AMPICILLIN) Allergy Severe Severe Verified 01/11/25 13:10 drug rash, ulcers in mouth, peeling of skin Penicillins Allergy Severe Urticaria Verified 01/11/25 13:10 swelling Sulfa (Sulfonamide Allergy Mild HIVES Verified 01/11/25 13:10 Antibiotics) (SULFA (SULFONAMIDE ANTIBIOTICS)) metronidazole (METRONIDAZOLE) AdvReac Severe Herrera Verified 01/11/25 13:10 Wilder syndrome ciprofloxacin (From CIPRO) AdvReac Intermediate Torn Verified 01/11/25 13:10 meniscus gabapentin AdvReac Blurry Verified 01/11/25 13:10 Vision Exam Narrative Exam Narrative: General: healthy, alert, coherent, no acute distress, cooperative, nontoxic Pulmonary: normal breathing, no distress Abdomen: soft, no mass, non-distended, no hernia, non-tender Skin: Scars on Abd: 0 Vulva: Normal labia majora, labia minora, introitus, and clitoris, non-tender Urethra meatus: normal, no discharge Perineum: Normal, non-tender Urethra: No mass, non-tender Bladder: no mass, non-tender Vagina: No lesions, no discharge, mild atrophy, non-tender stage 3 POP, cystocele and vault Levators: Non-tender, 4/ 5 kegel squeeze hyst Bimanual: no mass, no adnexal mass, non-tender Rectum: No mass, normal sphincter tone, Empty Cough Stress test: Neg PVR: 80 mL by catheter Urethral angle hypermobile: + Pelvic Organ Prolapse: + POP-Q Exam: Aa: 0 Ba: +2 Ap: -2 Bp: -2 C: -3 D: TVL: 7.5 GH: 3 PB: 3 Introitus size: 2 fingerbreadths Cystocele stage: 3 Rectocele stage: 1 Uterine/Vault Prolapse Stage: 2 URODYNAMIC STUDIES [age] year old female, here for evaluation of stage III cystocele and vaginal vault prolapse, recurrent. She is at risk for developing stress incontinence following her prolapse surgery Treatment to date includes:? Prior surgeries include LAVH, BSO, A&P repair, sacrospinous ligament vault suspension, 2021. Then in 2022 sacrospinous ligament vaginal vault suspension. Then in September 2023, sacrospinous ligament vaginal vault suspension with anterior repair. She now has recurrent stage III prolapse and desires definitive surgery with a robotic sacral colpopexy. Complex Uroflowmetry: Voided Volume:? 424 cc? Max Flow:? 23 cc/s? Avg Flow:? 7 Cc/s PVR:? 320 cc, however there is a 20-30 minute gap and she was very well hydrated, so her true PVR is about 100-150 cc. Cc? Pattern:? Normal Filling Cystometry: Position:? Semi-Fowlers? Catheters: air-charged T-Doc? Fill rate:? 50 cc/min First Sensation:? 12 cc? First Urge:? 151 cc? Strong Urge:? 230 Cc? Capacity:? 400 cc Detrusor Overactivity (DO): No Compliance:? Normal EMG tracing -no Valsalva Leak Point Pressure: ?at?negative at 100, 200, 300 cc cc:? 80-100 cm H2O? Leak ? :??No Cough stress test, positive:??No Stress Urinary Incontinence (ABIOLA):??No Urethral Pressure Profile: Maximum urethral closure pressure:? 40 cm H2O Pressure-Flow Voiding Study: Voided Volume:? 200 cc? Max Flow:? For cc/s? Pressure at Peak Flow:? 30 cm H2O? Avg Flow:? To cc/s? 300 cc PVR Her bladder capacity was 500 cc. She filled to 400 cc. She had 100 cc of intrinsic renal urine output. Normal PFVS ? ASSESSMENT Urodynamic evidence of?no evidence of stress incontinence. No need for a sling with her prolapse repair ABIOLA, no ISD,?now DO, now 500 ml bladder capacity No urinary retention or There is some voiding dysfunction. But this is likely related to her prolapse. Anticipate it will resolve Assessment & Plan Assessment and plan (1) Vaginal vault prolapse: Status: Acute (2) Cystocele, midline: Status: Acute (3) History of vaginal surgery: Problem details: Bilateral sacrospinous ligament fixation with anterior repair Status: Acute Plan 1.??? Pelvic Organ Prolapse - Stage 3.? recurrent ? This diagnosis and its etiology was discussed with the patient.? Treatment options were discussed including: expectant management, pessary trial, and surgical intervention. We briefly discussed risks and benefits of surgery. All surgery for prolapse is not 100% successful and there is a chance of recurrence or failure. ?She declines a Pessary Trial for Prolapse she desires surgery my rec= Bony Lap sacral colpopexy, see AVS for counseling 2. No evidence of stress incontinence seen on urodynamics. Therefore does not need a sling at the time of colpopexy 3. Overactive bladder and urge incontinence.?? We will reassess after the surgery. Often these symptoms improve Surgical Counselling Note Patient seen for surgical counselling.? She desires surgical repair. Please see? H & P for exam and discussion. Date of procedure:??March 29, 2025 Preoperative diagnosis:? Vaginal vault prolapse, cystocele, stage III Planned Procedure: Robotic laparoscopic sacral colpopexy Postop Meds Tylenol 1000 mg, ?3 times a day? Meloxicam 15 mg once a day Hydrocodone 5 mg with Tylenol. Take 1 pill as needed for pain up to 3 times a day. Ten pills ordered Colace,? 1 pill BID, for constipation She was counseled that if she uses additional amounts of O'Brien/hydrocodone, then she will need to cut back on her Tylenol, due to the Tylenol that is already in the O'Brien. Patient counseled extensively about the Risks, Benefits, and Alternatives to surgery.? She was offered the opportunity to ask any questions, and all questions were answered. ? Surgical Risks include: Bleeding, Hemorrhage, Transfusion, Infection (especially wound or bladder), Injury to adjacent organs (especially bladder, ureter, bowel, blood vessels, nerves), Postop or Chronic Pain, need for Reoperation, and Life-threatening event (especially M.I., CVA, PE, DVT). Procedure Risks include: Failure to Cure condition, Recurrence of condition months or years later, Urinary incontinence, Voiding dysfunction or Urinary Retention with prolonged catheter use, Poor wound healing, Erosions of any mesh or graft used, Dyspareunia, Vaginal scarring or narrowing, Need for additional surgery (immediate or delayed).? The expected cure and improvement and failure rates were discussed. Patient counseled to avoid the following for 6 weeks after surgery: (1) Impact sports (like running or jumping), walking and stairs OK (2) Lifting over 20# (3) Sexual intercourse No limits after 6 weeks. ? Good exercise tolerance, > 4 Mets. Her current medications were reviewed, and instructions given over which to use and which to discontinue before surgery.? Post-operative care instructions reviewed.? We discussed post-operative pain: Pain should be in the mild-moderate range, but can be moderate-severe for the first few days.?? Prescriptions will typically be given for (1) acetaminophen (Tylenol) and (2) non-steroidal anti-inflammatory drug (NSAID, like Motrin or Naprosyn), use both together, around the clock. Prescription will also be given for a (3) narcotic pain medication. Use the narcotic as needed, as a booster to the Tylenol and NSAID. You might need 0-4 narcotic pills a day typically. The narcotic will only be needed for a few days.?? Gradually use less of the narcotic, but continue the Tylenol and NSAID.? After a few days, the narcotic should no longer be needed, and only the Tylenol and NSAID will be needed.? Warm packs or cold packs can also be used for pain.??Do not drive for as long as you are using the narcotic pain medication? - this should only be a few days.?? Constipation is associated with use of narcotic pain medications, and can be improved with use of a stool softener, or fiber, or a mild laxative.? All of her questions were answered Mervin Keenan MD UroGynecology [facility] Pelvic Reconstructive Surgery [place], [place] Time-Based Coding :: [TOTAL MINUTES] spent with patient and on the chart (including review of chart, obtaining history, exam, reviewing outside data, placing orders, documenting exam and treatment plan, and counseling patient) on [DATE].
[2025-03-29] VITALS (14 sets, daily range): BP systolic 126–151; BP diastolic 50–75; PULSE 65–95; RESP 12–17; TEMP 35.7–36.4; O2SAT 93–100; BMI 27.8
[2025-03-29] MEDS: LACTATED RINGERS 1,000 ML 42 ML IV ×4 (11:32→19:40)
[2025-03-29 12:06] LABS: Add Manual Diff / Slide Review NO; Hematocrit 39.7 % (36-46); Hemoglobin 13.5 g/dL (12.0-16.0); Lymphocytes Absolute Auto 1600 /uL (1100-4500); Mean Corpuscular HGB Conc 34.0 % (30-36); Mean Corpuscular Hemoglobin 30.0 PG (26-34); Mean Corpuscular Volume 88.0 fL (80-100); Platelet Count 189 X10^3/uL (150-400)
[2025-03-29 12:17] LABS: Alanine Aminotransferase 18 IU/L (<35); Albumin 4.6 g/dL (3.5-5.0); Albumin Globulin Ratio 1.8 (1.0-2.8); Alkaline Phosphatase 82 U/L (38-126); Blood Urea Nitrogen 14 mg/dL (7-17); Calcium 9.6 mg/dL (8.4-10.2); Carbon Dioxide 22 mmol/L (22-32); Chloride 106 mmol/L (98-107); Estimated Glomerular Filt Rate > 60 mL/min (>60); Globulin 2.6 g/dL (1.7-4.1); Glucose 87 mg/dL (70-99); HEMOLYSIS 52 (0-50); Potassium 4.5 mmol/L (3.4-5.1); Sodium 136 mmol/L (137-145); Total Protein 7.2 g/dL (6.3-8.2)
--- NOTE | 2025-03-29 12:50 | PM.PREOP ---
Pre-operative Note Interval Note History & Physical reviewed/Exam performed by Physician: Yes Changes to H&P: No
[2025-03-29] MEDS: SCOPOLAMINE 1 PATCH TOP (13:00)
[2025-03-29] MEDS: PHENAZOPYRIDINE 100 MG TABLET 200 MG PO (13:00)
[2025-03-29] MEDS: ACETAMINOPHEN 325 MG TABLET 975 MG PO ×2 (13:00→19:39)
[2025-03-29] MEDS: CEFAZOLIN 2 GM/100 ML PREMIX 100 ML IV (13:40)
--- NOTE | 2025-03-29 14:24 | SUR.OPER ---
Lithotomy on padded OR bed. [place] Pad Positioner under torso. Head on pillow, arms padded and tucked at sides. Legs secured in padded yellow fins stirrups.
[2025-03-29] MEDS: LIDOCAINE 1% 20 ML INJ (14:43)
[2025-03-29] MEDS: HYDROMORPHONE 1 MG INJ IV ×2 (17:26→17:38)
[2025-03-29] MEDS: OXYCODONE IR 5 MG TABLET PO (17:29)
--- NOTE | 2025-03-29 18:01 | PM.GYNOP.1 ---
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 Post-op diagnosis: same Procedure & Clinicians Procedure: Procedures Operation Date: 03/29/25 12:30 Actual Procedure Side Surgeon p Robotic Assisted Laparoscopic sacrocolpopexy AND CYSTOSCOPY Mervin Keenan MD Operative Notes Findings: Operative Note Surgeon:? Mervin Keenan MD [employer] Supervisor: Dr. Lilia Calvert Pre-Op Diagnosis:?? 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 1. 5 ports, usual fashion. Prior hysterectomy and bilateral salpingectomy. Normal ovaries. Adhesions of the sigmoid colon to the vaginal cuff. Also, significant scarring from her 2 prior sacrospinous ligament suspension surgeries, with permanent sutures encountered during the dissection ? 2.? Restorelle mesh cut to 5 cm Ant and 8 cm Post, attached to vagina with sutures of 2-0 vicyrl.?? Excellent support of all 3 compartments. ? 3.? Cystoscopy with normal bladder, ureters, urethra, no trocar injury, bilateral ureteral jets. ? There was leakage of fluid observed when the cystoscope was removed. Unsure if she will demonstrate stress incontinence or urge incontinence after surgery. We will follow. Preoperative urodynamic studies demonstrated no stress incontinence and no urge incontinence, but a postvoid residual of 300 cc Date of Surgery:? March 29, 2025 Complications:? None Specimens:? None Anesthesia Technique: General endotracheal Estimated Blood Loss (mls):? Minimal Blood Replacement (mls):? None Drains:? Anand catheter Condition:? Stable Procedure in detail: After consent was confirmed, the patient was taken to the operating room and?positioned with the [place] Pad on the OR bed, and then placed under general anesthesia without incident. ?Sequential compression devices were in place and active. ?She received perioperative antibiotics. ?The arms were tucked and her legs were placed in the dorsal lithotomy position using the Dany stirrups. ??She was then prepped and draped in the usual sterile fashion. ?An examination under anesthesia was consistent with the preoperative assessment. ?A three-way 16 kittitian anand catheter was placed. ?Attention was turned to the abdomen. All 5 trocar sites were injected with 0.25% Marcaine with epinephrine prior to incision. A supra-umbilical 8?mm port was placed 2-3 cm above the umbilicus: a 8?mm incision was made, the Veress needle was placed, and pneumoperitoneum was achieved at low flow of 5, reaching a pressure of about 12, with 2-3 liters of CO2 gas. ?The abdominal wall was tented out to avoid any injury to underlying structures, and the trocar was introduced into the abdomen with ease, flow turned up to 40, pressure set at 12. ??Three?additional 8 mm robotic ports were placed, along the same line across the abdomen: ?? right lateral abdomen, left mid abdomen, left lateral abdomen,?under direct visualization atraumatically.??An additional golf player assistant 8 mm port was placed in the RUQ.?The patient was placed into steep Trendelenberg. ?The DV5?robot was Docked from a side-dock approach, using 3 arms. ?During the dissection, monopolar scissors and bipolar [place]?forceps were used, and during suturing, these were replaced with 2 needle drivers. ?The [employer] grasper was used at the 3rd arm for surgical assistance. ?The 4th port was for the human resources assistant (passing sutures and suction / irrigation). ?At this point, I went to the robotic console to operate the robot.? Adhesions of the sigmoid colon to the vaginal cuff, were filmy, and were lysed sharply. The sigmoid was retracted, and the sacral promontory was identified, and the ureters were identifed lateral to the intended surgical planes.? The bladder was dissected off the vagina for a distance of 4-5 cm, and the vagina was dissected off the posterior peritoneum, most of the way down the posterior vagina, approx 6-8 cm. As noted above, scarring and permanent sutures from her 2 prior sacrospinous ligament suspension surgeries. The [facility] [employer] Sacral Colpopexy tip with the Olesya Arch was used to expose the vagina for dissection. ?Retrograde fill of the bladder facilitated the dissection. ?The peritoneum over the sacral promontory was incised and the dissection was carried down into the pelvis. ?The loose areolar connective tissue overlying the sacral promontory was dissected until the sacrum was clearly identified. ?The anterior arm of the Y-polypropylene mesh was fashioned as noted above, and sutured to the anterior vagina with several interrupted 2-0 vicryl sutures. ?The posterior arm of the mesh was fashioned as noted above, and sutured to the posterior vagina with several interrupted 2-0 vicryl sutures. ?The mesh tail was grasped to create a Y shape, cut to the appropriate length, and then attached to the sacral promontory in a tension-free manner, using 2 sutures of 2-0 Ethibond (permanent suture). The sacral peritoneum was closed over the mesh with a running 2-0 PDS / V-Lock suture, and then continued to close the peritoneum over the vaginal part of the mesh. I left the console and scrubbed and gowned and returned to the OR table. The robot was undocked.? All port sites were inspected for hemostasis, and pneumoperitoneum released. The skin incisions were reapproximated with 4-0 monocryl, and then dermabond was placed. ?Attention was turned to the remainder of the vagina where excellent apical support was appreciated. ?Cystourethroscopy was performed which revealed bilateral ureteral efflux of pyridium and no evidence of injury or suture material within the bladder urethra. Sponge, needle and instrument count was correct.? The patient tolerated the procedure well and was taken to the recovery room in stable condition. Mervin Keenan MD UroGynecology & Pelvic Reconstructive Surgery [place], [place] Applied: catheter and implant(s) (Laparoscopic mesh implant for the colpopexy)
--- NOTE | 2025-03-29 18:17 | SUR.PHASEI ---
Pt transferred to room 214 in bed with 1 belongings bag and 1 personal bag. SBAR report to [facility].
--- NOTE | 2025-03-29 18:30 | PC.NURSE ---
Patient brought up from PACU to room 214, oriented to room and call light and call light placed within reach. Patient denies pain at this time, VSS. Tran intact draining clear orange urine. Deepali pad in place without drainage. Continue to monitor.
[2025-03-29] MEDS: DOCUSATE 100 MG CAPSULE PO (20:48)
[2025-03-30 01:00] VITALS: BP 108/46; PULSE 60; RESP 15; TEMP 36.2; O2SAT 91
[2025-03-30] MEDS: KETOROLAC 30 MG/ML VIAL 15 MG IV ×2 (01:19→06:05)
[2025-03-30] MEDS: ACETAMINOPHEN 325 MG TABLET 975 MG PO ×2 (01:20→09:25)
[2025-03-30 06:14] VITALS: BP 104/42; PULSE 55; RESP 16; TEMP 36.6; O2SAT 95
--- NOTE | 2025-03-30 06:51 | PC.NURSE ---
Void trial performed. 300cc sterile water instilled into bladder via gravity, DC'd anand, patient ambulated to [facility] and voided 300cc clear, pink urine. PVR: <20cc. Patient denies pain or nausea. Oriented to call-light, plan of care ongoing.
[2025-03-30 08:00] VITALS: RESP 16; TEMP 36.2; O2SAT 96
[2025-03-30] MEDS: DOCUSATE 100 MG CAPSULE PO (09:25)
[2025-03-30 09:26] VITALS: BP 104/53
[2025-03-30 10:52] VITALS: BP 129/69
--- NOTE | 2025-03-30 15:34 | CM.DANOTE ---
Inital DCP Assessment Visit Note Reviewed EMR for pt's medical status and updates. Met with pt/spouse at bedside to introduce self and role, pt was found to be alert/oriented, and preparing for home d/c. Pt lives independently with her spouse in their own home here in [place]. She has been medically cleared for d/c today, and her spouse was able to transport her home. She denied any CM d/c needs at this time. Payor: [employer] Attending: Dr. Keenan Pt is a 79 year-old F post-op day 1 from surgery to correct her uteral prolapse and surgery. She did well postoperatively, pain was well controlled, and she was able to void before discharging home. She will f/u with Dr. Keenan for OP postsurgical f/u. No further d/c needs indicated prior to d/c. Discharge Planning/Care Management CM Discharge Assessment Start: 03/29/25 19:10 Freq: Status: Discharge Protocol: Document 03/30/25 13:11 DPL (Rec: 03/30/25 13:12 DPL [id number]) Discharge Planning Assessment Assigned Discharge BETO Bell Anesthesia Associate Advance Directives? Yes Advance Directives Yes on File History Provided By Patient,Significant Other,Medical Record Has Patient been No admitted in last 30 days? Prior Living House Arrangements Household Members spouse Type of Drives own vehicle transporation used prior to admit Independent with ADL Yes 's Is patient alert and Yes oriented? Comment N/A Caregiver for No Another Comment No cm d/c needs identified at this time. Barriers to No Discharge Discharge Plan Home Transportation Spouse Arrangement Referrals Initiated None needed Whiteboard Updated Yes in Patient Room with name and ext. 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 Patient Information Chart Review Reviewed Via Diagnostic Results BMP/CMP,CBC Comment 12/29/24 at . Primary Care Kristopher Spears Provider Seen Specialist in Yes Last 12 Months Specialist Seen Claims Counsel,Urologist Primary Language Samoan Preferred Language Samoan Clinical Administrator Required No Height 160.02 cm Weight 72.121 kg Body Mass Index (BMI 28.1 ) Hx Family Anesthesia No Reaction Anesthesia Review No Requested E Business Specialist No alcohol intake current Smoking Status Never smoker Musculoskeletal Back Pain Symptoms Patient is No completely paralyzed or completely immobile Is patient on oxygen No ? Hx Sleep Apnea No Currently Taking a No Beta [place] Anti-Coagulant No Therapy Cardiac Testing No Hx Pacemaker/ICD No Bladder Pattern Urgency Hx Urinary Self No Catheterization Diabetes No Patient No Lactating No Hx Drug Resistant No Organism Presence of External Yes: Left elbow pin or Internal Medical Devices Received a COVID Yes vaccine? Marital Status Lives With spouse Patient Discharge Return Home Plan Description Emergency Contact Eligio () Jesi Joshi (daughter) Name Emergency Contact Elgiio: [phone] Jesi: [phone] Phone Number Advance Directives? Yes Advance Directives Yes on File Power of Gun Repair Clerk Yes Power of Gun Repair Clerk Eligio Read - Name Power of Gun Repair Clerk [phone] Phone Number
== END 2025-03-30 12:53 | disposition home or self-care (01) ==
LOC: OR 18:22 → AC 03-30 08:59
PROVIDERS: PCP Family Medicine; Referring Provider Obstetrics & Gynecology Gynecology; Visit Provider Obstetrics & Gynecology Gynecology
PROC: 0USG4ZZ Reposition Vagina, Percutaneous Endoscopic Approach (ICD-10-PCS; CPT 57425; principal; 2025-03-29 12:30)
DX: N81.9 Female genital prolapse, unspecified (principal); N81.10 Cystocele, unspecified; R33.9 Retention of urine, unspecified
CPT/HCPCS: 57425; 20985; 36415; 80053; 85025; C1781; G0378; J0690; J1100; J1171; J1885; J2405; J2704; J3010; J3490